=== PATIENT | male | born 1955 ===

== ENCOUNTER → 2018-10-24 | Outpatient (CLI) | payer SELFPAY ==
[~2018-10-24] MED LIST: ACC200C PO; GLIP10TA13; HOLD METFORMIN - RECEIVED CONTRAST 20 ML VIAL IV SCH; IOHEXOL 350 MG/ML 100 ML (OMNIPAQUE 350) VIAL IV ONE; MED FOR DIABETES; METF-399; NS 100 ML (IVPB) BAG IV ONE; PRD20T PO; [UNRECOGNIZED DRUG - CODE] TOP
--- NOTE | 2018-10-24 13:48 | Diagnostic Imaging Report ---
PROCEDURE: CT abdomen and pelvis with contrast. TECHNIQUE: Multiple contiguous axial images were obtained through the abdomen and pelvis after administration of intravenous contrast. Auto Exposure Controls were utilized during the CT exam to meet ALARA standards for radiation dose reduction. INDICATION: Right lower quadrant mass. FINDINGS: No comparison available. Limited views of the lower thorax reveal patchy areas of atelectasis. Liver is normal without focal lesion. Gallbladder is normal. No biliary ductal dilation. Portal vein is patent. Pancreas, spleen, and adrenal glands are normal. Kidneys enhance symmetrically without focal lesion. No hydronephrosis. A cyst is noted in the left kidney. Urinary bladder is normal. There are no dilated loops of large or small bowel. There is diverticulosis without diverticulitis. There is circumferential thickening of the descending colon concerning for a colonic neoplasm (series 2, image 50). No mesocolonic lymph nodes are seen. There is no abdominal or pelvic lymphadenopathy. Abdominal aorta is normal in caliber. No free intraperitoneal fluid or air. There are no suspicious osseous lesions. IMPRESSION: 1. Concentric thickening of the ascending colon concerning for colonic neoplasm. 2. No metastatic disease identified in the abdomen or pelvis. Dictated by: Dictated on workstation # [id number]
== END ==
LOC: RAD 11:41
PROVIDERS: ATTEND Nurse Practitioner Community Health
DX: K63.89 Other specified diseases of intestine (principal); R19.03 Right lower quadrant abdominal swelling, mass and lump
CPT/HCPCS: 74177

== ENCOUNTER 2018-10-27 22:28 | Emergency (ER) | payer SELFPAY ==
[~2018-10-27] VITALS: Ht 165.1 cm; Wt 83.9 kg
[~2018-10-27 22:28] MED LIST changes: -HOLD METFORMIN - RECEIVED CONTRAST 20 ML VIAL IV SCH; -IOHEXOL 350 MG/ML 100 ML (OMNIPAQUE 350) VIAL IV ONE; -NS 100 ML (IVPB) BAG IV ONE
--- OUTSIDE RECORDS SUMMARY | 2018-10-27 22:34 | XMS REPORT ---
Author Author ABHILASH MANN Organization [facility] Address [address] [place] [address] Care Team Providers Care Asphalt Spreader Operator Name Role Phone ABHILASH MANN Unavailable PROBLEMS Type Condition ICD9-CM Code MAI24-BX Code Onset Dates Condition Status SNOMED Code Problem Diabetes E11.9 Active 17696162 ALLERGIES Substance Reaction Event Type Date Status Hydrocodone-acetaminophen 5-325 Mg Tablet Unknown Non Drug Allergy Jul, Active ENCOUNTERS Encounter Location Date Diagnosis [facility] [address] [place] [address] Sep, Epigastric pain R10.13 and H. pylori infection A04.[address] [address] August, Hidradenitis axillaris L73.2 and Diabetes E11.[address] [address] Sep, [address] [address] Sep, Atypical mole D22.[address] [address] Dec, Dyspepsia R10.13 and Tinea corporis B35.[address] [address] Dec, Diabetes E11.9 ; Hyperlipidemia, unspecified hyperlipidemia type E78.5 and Ringworm B35.[address] [address] Feb, Diabetes E11.9 and Callus L84 [place] [address] [id number] [place] [address] 03 Feb, 2015 Sinusitis J32.9 and Rash R21 [facility] [place] [facility] [address] [id number] [place] [address] 26 Sep, 2014 [facility] [place] [facility] [address] [facility] [id number] [place] [address] 18 Sep, 2014 [facility] [place] [facility] [address] [id number] [place] [address] Jul, [facility] [place] [facility] [address] [id number] [place] [address], [place] [address] Jul, [facility] [address] [facility] [id number] [place] [address] Apr, [facility] [place] [facility] [address] [facility] [id number] [place] [address] Apr, [facility] [address] [facility] [id number], [place] [address] 16 Mar, 2014 [facility] [place] [facility] [address] [id number], [place] [address] 16 Mar, 2014 [facility] [place] [facility] [address] [facility] [id number], [place] [address] Mar, [facility] [place] [facility] [address] [facility] [id number], [place] [address] Mar, [facility] [place] [facility] [address] [id number], [place] [address] 14 Feb, 2014 [facility] [place] [facility] [address] [facility] [id number] [place] [address] Feb, [facility] [place] [facility] [address] [facility] [id number], [place] [address] 14 Jan, 2014 [facility] [place] [facility] [address] [facility] [id number], [place] [address] 14 Jan, 2014 [facility] [place] [facility] [address] [id number] [place] [address] Nov, [facility] [place] [facility] [address] [id number] [place] [address] Nov, [facility] [place] [facility] [address] [id number] [place] [address] Nov, [facility] [place] [facility] [address] [id number] [place] [address] Nov, [facility] [place] [facility] [address] [id number] [place] [address] Nov, [facility] [place] [facility] [address] [id number] [place] [address] Nov, [facility] [place] [facility] [address] [id number] [place] [address] Jul, [facility] [place] [facility] [address] [id number] [place] [address] Jul, [facility] [place] [facility] [address] [id number] [place] [address] Jun, [facility] [place] [facility] [address] [id number] [place] [address] Jun, [facility] [place] [facility] [address] [id number] [place] [address] Jun, [facility] [place] [facility] [address] [id number] [place] [address] Jun, [facility] [place] [facility] [address] [id number] [place] [address] Mar, [facility] [place] [facility] [address] [id number] [place] [address] Mar, [facility] [place] [facility] [address] [id number] [place] [address] Jan, [facility] [place] [facility] [address] [id number] [place] [address] Jan, [facility] [address] [facility] [id number], [place] [address] Nov, [facility] [address] [facility] [id number], [place] [address] Oct, [facility] [address] [facility] [id number], [place] [address] August, [facility] [address] [facility] [id number], [place] [address] Jul, [facility] [address] [facility] [id number], [place] [address] May, [facility] [address] [facility] [id number], [place] [address] Apr, [facility] [address] [facility] [id number], [place] [address] Apr, [facility] [address] [facility] [id number], [place] [address] Mar, [facility] [address] [facility] [id number], [place] [address] Mar, [facility] [address] [place] [id number], [place] [address] Feb, [facility] [address] [place] [address] [id number], [place] [address] Feb, [facility] [address] [place] [id number], [place] [address] Jan, [facility] [address] [facility] [id number], [place] [address] Jan, [facility] [address]00565[address], [place] [address] Jan, IMMUNIZATIONS No Known Immunizations SOCIAL HISTORY Never Assessed REASON FOR VISIT EMR-[facility] PLAN OF CARE VITAL SIGNS MEDICATIONS Medication Instructions Dosage Frequency Start Date End Date Duration Status Lisinopril 20 mg 1 tablet 1 time per day Mar, Active Simvastatin 40 mg 1 tablet 1 time per day Mar, Active HydrOXYzine HCl 10 mg 1 Tablet by Oral route 3 times per day for itching Apr, Active Valtrex 1 gram 1 tablet by Oral route every 8 hours for 7 days Nov, Active GlipiZIDE 10 mg 1 tablet by Oral route 2 times per day Jan, Active Fluoxetine 20 mg 1 capsule by Oral route 1 time per day Jun, Active Lyrica 50 mg 1 capsule by Oral route 3 times per day for fibromyalgia (729.1) 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) Jan, Active Lotrisone 1-0.05 % apply 1 Application by Topical route 2 times per day for 2 weeks Mar, Active metformin 1,000 mg 1 tablet by Oral route 2 times per day Jan, Active Viagra 100 mg 0.5-1 tablet by Oral route 1 time per day PRN Mar, Active RESULTS No Results PROCEDURES No Known procedures INSTRUCTIONS MEDICATIONS ADMINISTERED No Known Medications MEDICAL (GENERAL) HISTORY Type Description Date Medical History Eye appt 08/29/14 Mild - Mod DM retinopathy marcell Medical History Type 2 diabetes Medical History hypertension Surgical History orthopedic surgery-right knee surgery, done in [place] by Dr. Alcaraz at [address] 03/2010 Surgical History right knee scope by Dr. Rueda 05/2011 Hospitalization History Hospitalization for surgery only
--- OUTSIDE RECORDS SUMMARY | 2018-10-27 22:35 | XMS REPORT ---
Author Author Migration, Doctor Organization [facility] [place] [facility] Address Unknown Phone Unavailable Care Team Providers Care Sewing Room Supervisor Name Role Phone Migration, Doctor Unavailable Unavailable PROBLEMS Type Condition ICD9-CM Code BRF88-PI Code Onset Dates Condition Status SNOMED Code Problem Diabetes E11.9 Active [id number] ALLERGIES No Information ENCOUNTERS Encounter Location Date Diagnosis [facility] [address] [address] Sep, Epigastric pain R10.13 and H. pylori infection A04.[address] [address] August, Hidradenitis axillaris L73.2 and Diabetes E11.9 [place] [address] [address] Sep, [address] [address] Sep, Atypical mole D22.[address] [address] Dec, Dyspepsia R10.13 and Tinea corporis B35.[address] [address] Dec, Diabetes E11.9 ; Hyperlipidemia, unspecified hyperlipidemia type E78.5 and Ringworm B35.[address] [address] Feb, Diabetes E11.9 and Callus L84 [address] [address] Feb, Sinusitis J32.9 and Rash R21 [address] [place] [address] 26 Sep, 2014 [facility] [place] [facility] [address] [id number] [place] [address] 18 Sep, 2014 [facility] [place] [facility] [address] [id number] [place] [address] 14 Jul, 2014 [facility] [place] [facility] [address] [id number] [place] [address] 13 Jul, 2014 [facility] [place] [facility] [address] [id number] [place] [address] 13 Apr, 2014 [facility] [place] [facility] [address] [id number] [place] [address] Apr, [facility] [place] [facility] [address] [id number] [place] [address] 16 Mar, 2014 [facility] [place] [facility] [address] [id number] [place] [address] 16 Mar, 2014 [facility] [place] [facility] [address] [id number] [place] [address] Mar, [facility] [place] [facility] [address] [id number] [place] [address] Mar, [facility] [place] [facility] [address] [id number] [place] [address] Feb, [facility] [place] [facility] [address] [id number] [place] [address] Feb, [facility] [place] [facility] [address] [id number] [place] [address] Jan, [facility] [place] [facility] [address] [id number] [place] [address] Jan, [facility] [place] [facility] [address] [id number] [place] [address] Nov, [facility] [place] [facility] [address] [id number] [place] [address] Nov, [facility] [place] [facility] [address] [id number] [place] [address] Nov, [facility] [place] [facility] [address] [id number] [place] [address] Nov, [facility] [place] [facility] [address] [id number] [place] [address] Nov, [facility] [place] [facility] [address] [id number] [place] [address] Nov, [facility] [place] [facility] [address] [id number] [place] [address] Jul, [facility] [place] [facility] [address] [id number] [place] [address] Jul, [facility] [place] [facility] [address] [id number] [place] [address] Jun, [facility] [place] [facility] [address] [id number] [place] [address] Jun, [facility] [place] [facility] [address] [id number] [place] [address] Jun, [facility] [place] [facility] [address] [id number] [place] [address] Jun, [facility] [place] [facility] [address] [id number] [place] [address] Mar, [facility] [place] [facility] [address] [id number] [place] [address] Mar, [facility] [place] [facility] [address] [id number] [place] [address] Jan, [facility] [place] [facility] [address] [id number] [place] [address] Jan, [facility] [place] [facility] [address] [id number] [place] [address] Nov, [facility] [place] [facility] [address] [id number] [place] [address] Oct, [facility] [address] [place] [id number] [address] August, [facility] [id number] [address] Jul, [facility] [id number] [address] May, [facility] [id number] [address] Apr, [facility] [address]00565[address] [address] Apr, [facility] [address]65[address] [address] Mar, [facility] [id number] [address] Mar, [facility] [id number] [address] Feb, [facility] [address]00565100[place] [address] Feb, [facility] [address]00565[address] [address] Jan, [facility] [address]00565[address] [address] Jan, [facility] [address] [address] Jan, IMMUNIZATIONS No Known Immunizations SOCIAL HISTORY Never Assessed REASON FOR VISIT [place] PLAN OF CARE VITAL SIGNS MEDICATIONS No Known Medications RESULTS No Results PROCEDURES No Known procedures INSTRUCTIONS MEDICATIONS ADMINISTERED No Known Medications MEDICAL (GENERAL) HISTORY Type Description Date Medical History Eye appt 08/29/14 Mild - Mod DM retinopathy marcell Medical History Type 2 diabetes Medical History hypertension Surgical History orthopedic surgery-right knee surgery, done in [place] by Dr. Alcaraz at [address] 03/2010 Surgical History right knee scope by Dr. Rueda 05/2011 Hospitalization History Hospitalization for surgery only
--- OUTSIDE RECORDS SUMMARY | 2018-10-27 22:35 | XMS REPORT ---
Author Author MILI DENIS [facility] Address [address] [place] [address] Care Team Providers Care Aquaculturist Name Role Phone MILI DENIS Unavailable PROBLEMS Type Condition ICD9-CM Code [id number] Code Onset Dates Condition Status SNOMED Code Problem Diabetes E11.9 Active [id number] ALLERGIES Substance Reaction Event Type Date Status Hydrocodone-acetaminophen 5-325 Mg Tablet Unknown Non Drug Allergy Sep, Active ENCOUNTERS Encounter Location Date Diagnosis [place] [address] [address] Dec, [facility] [address] [address] Sep, Epigastric pain R10.13 and H. pylori infection A04.8 [place] [address] [address] August, Hidradenitis axillaris L73.2 and Diabetes E11.9 [place] [address] [address] Sep, [place] [address] [address] Sep, Atypical mole D22.9 [place] [address] [address] Dec, Dyspepsia R10.13 and Tinea corporis B35.4 [place] [address] [address] Dec, Diabetes E11.9 ; Hyperlipidemia, unspecified hyperlipidemia type E78.5 and Ringworm B35.9 [place] [address] [place] [address] Feb, Diabetes E11.9 and Callus L84 [facility] [address] [place] [id number] [place] [address] Feb, Sinusitis J32.9 and Rash R21 [facility] [address] [id number] [place] [address] Sep, [facility] [id number] [place] [address] Sep, [facility] [id number] [place] [address] Jul, [facility] [id number] [place] [address] Jul, [facility] [id number] [place] [address] Apr, [facility] [address] [id number] [place] [address] Apr, [facility] [id number] [place] [address] Mar, [facility] [id number] [place] [address] Mar, [facility] [id number] [place] [address] Mar, [facility] [id number] [place] [address] 09 Mar, 2014 [facility] [id number] [place] [address] Feb, [facility] [id number] [place] [address] 14 Feb, 2014 [facility] [address], [place] [address] 14 Jan, 2014 [facility] [id number] [place] [address] [place] [address] 14 Jan, 2014 [facility] [place] [facility] [address] [id number] [place] [address] Nov, [facility] [place] [facility] [address] [id number] [place] [address] Nov, [facility] [place] [facility] [address] [id number] [place] [address] Nov, [facility] [place] [facility] [address] [id number] [place] [address] Nov, [facility] [place] [facility] [address] [id number] [place] [address] Nov, [facility] [place] [facility] [address] [id number] [place] [address] Nov, [facility] [place] [facility] [address] [id number] [place] [address] Jul, [facility] [place] [facility] [address] [id number] [place] [address] Jul, [facility] [place] [facility] [address] [id number] [place] [address] 14 Jun, 2013 [facility] [place] [facility] [address] [id number] [place] [address] 14 Jun, 2013 [facility] [place] [facility] [address] [id number] [place] [address] Jun, [facility] [place] [facility] [address] [id number] [place] [address] Jun, [facility] [place] [facility] [address] [id number] [place] [address] Mar, [facility] [place] [facility] [address] [id number] [place] [address] Mar, [facility] [place] [facility] [address] [id number] [place] [address] Jan, [facility] [place] [facility] [address] [id number] [place] [address] Jan, [facility] [address] [facility] [id number] [place] [address] Nov, [facility] [address] [facility] [id number] [place] [address] Oct, [facility] [address] [facility] [id number] [place] [address] August, [facility] [address] [id number] [place] [address] Jul, [facility] [address] [facility] [id number] [place] [address] May, [facility] [address] [facility] [id number] [place] [address] Apr, [facility] [address] [facility] [id number] [place] [address] Apr, [facility] [address] [facility] [id number] [place] [address] Mar, [facility] [address] [facility] [id number], [place] [address] Mar, [facility] [address] [facility] [id number], [place] [address] Feb, [facility] [address] [facility] [id number], [place] [address] Feb, [facility] [address] [facility] [id number], [place] [address] Jan, [facility] [address] [facility] [id number], [place] [address] Jan, [facility] [address] [facility] [id number], [place] [address] Jan, IMMUNIZATIONS No Known Immunizations SOCIAL HISTORY Never Assessed REASON FOR VISIT Pain (acute) under left breast started 1-2 months ago- came back 1-2 weeks ago a nd is constant JStrasserRN PLAN OF CARE Activity Details Follow Up prn Reason: VITAL SIGNS Height 65 in 2017-09-18 Weight 193.0 lbs 2017-09-18 Temperature 97.6 degrees Fahrenheit 2017-09-18 Heart Rate 68 bpm 2017-09-18 Respiratory Rate 18 2017-09-18 BMI 32.11 kg/m2 2017-09-18 Blood pressure systolic 140 mmHg 2017-09-18 Blood pressure diastolic 74 mmHg 2017-09-18 MEDICATIONS Medication Instructions Dosage Frequency Start Date End Date Duration Status Triamcinolone Acetonide 0.5 % Externally Twice a day 1 application to affected area 12h 19 Feb, 2015 Not-Taking Aspir-81 81 MG Orally Once a day 1 tablet 24h Not-Taking Lisinopril 20 mg Orally Once a day 1 tablet 24h Not-Taking Zantac 150 MG Orally twice a day 1 12h 08 Dec, 2015 Not-Taking GlipiZIDE 10 mg 2 tablet in AM and 1 in PM 30 days Active Simvastatin 40 mg Orally Once a day 1 tablet in the evening 24h Not-Taking Omeprazole 20 MG Orally twice daily 1 capsule Sep, 14 days Active Clarithromycin 500 MG Orally every 12 hrs 1 tablet 12h Sep, Sep, 14 days Active Metformin HCl 1000 MG Orally Twice a day 1 tablet with meals 12h 30 days Active Amoxicillin 500 MG Orally every 12 hrs 2 capsule 12h Sep, Sep, 14 days Active Neurontin 300 MG Orally Once a day 1 capsule 24h Not-Taking RESULTS Name Result Date Reference Range H PYLORI (IN HOUSE) 2017-09-18 H. PYLORI positive Control + Lot # [id number] Exp date 2017-12-28 PROCEDURES Procedure Date Ordered Result Body Site IMMUNOASSAY,INFECTIOUS AGENT September 18, 2017 INSTRUCTIONS MEDICATIONS ADMINISTERED No Known Medications MEDICAL (GENERAL) HISTORY Type Description Date Medical History Eye appt 08/29/14 Mild - Mod DM retinopathy marcell Medical History Type 2 diabetes Medical History hypertension Surgical History orthopedic surgery-right knee surgery, done in [place] by Dr. Alcaraz at [address] 03/2010 Surgical History right knee scope by Dr. Rueda 05/2011 Hospitalization History Hospitalization for surgery only
--- OUTSIDE RECORDS SUMMARY | 2018-10-27 22:35 | XMS REPORT ---
Author Author Migration, Doctor Organization [facility] Address Unknown Phone Unavailable Care Team Providers Care Screen Printing Cloth Spreader Name Role Phone Migration, Doctor Unavailable Unavailable PROBLEMS Type Condition ICD9-CM Code [id number] Code Onset Dates Condition Status SNOMED Code Problem Diabetes E11.9 Active 44938774 ALLERGIES No Information ENCOUNTERS Encounter Location Date Diagnosis [facility] [address] [address] Sep, Epigastric pain R10.13 and H. pylori infection A04.[address] [address] August, Hidradenitis axillaris L73.2 and Diabetes E11.9 [place] [address] [address] Sep, [address] [address] Sep, Atypical mole D22.[address] [address] Dec, Dyspepsia R10.13 and Tinea corporis B35.[address] [address] Dec, Diabetes E11.9 ; Hyperlipidemia, unspecified hyperlipidemia type E78.5 and Ringworm B35.[address] [address] Feb, Diabetes E11.9 and Callus L84 [address] [address] Feb, Sinusitis J32.9 and Rash R21 [address] [place] [address] 26 Sep, 2014 [facility] [place] [facility] [address] [id number] [place] [address] 18 Sep, 2014 [facility] [place] [facility] [address] [id number] [place] [address] 14 Jul, 2014 [facility] [place] [facility] [address] [id number] [place] [address] 13 Jul, 2014 [facility] [place] [facility] [address] [id number] [place] [address] 13 Apr, 2014 [facility] [place] [facility] [address] [id number] [place] [address] Apr, [facility] [place] [facility] [address] [id number] [place] [address] 16 Mar, 2014 [facility] [place] [facility] [address] [id number] [place] [address] 16 Mar, 2014 [facility] [place] [facility] [address] [id number] [place] [address] Mar, [facility] [place] [facility] [address] [id number] [place] [address] Mar, [facility] [place] [facility] [address] [id number] [place] [address] Feb, [facility] [place] [facility] [address] [id number] [place] [address] Feb, [facility] [place] [facility] [address] [id number] [place] [address] Jan, [facility] [place] [facility] [address] [id number] [place] [address] Jan, [facility] [place] [facility] [address] [id number] [place] [address] Nov, [facility] [place] [facility] [address] [id number] [place] [address] Nov, [facility] [place] [facility] [address] [id number] [place] [address] Nov, [facility] [place] [facility] [address] [id number] [place] [address] Nov, [facility] [place] [facility] [address] [id number] [place] [address] Nov, [facility] [place] [facility] [address] [id number] [place] [address] Nov, [facility] [place] [facility] [address] [id number] [place] [address] Jul, [facility] [place] [facility] [address] [id number] [place] [address] Jul, [facility] [place] [facility] [address] [id number] [place] [address] Jun, [facility] [place] [facility] [address] [id number] [place] [address] Jun, [facility] [place] [facility] [address] [id number] [place] [address] Jun, [facility] [place] [facility] [address] [id number] [place] [address] Jun, [facility] [place] [facility] [address] [id number] [place] [address] Mar, [facility] [place] [facility] [address] [id number] [place] [address] Mar, [facility] [place] [facility] [address] [id number] [place] [address] Jan, [facility] [place] [facility] [address] [id number] [place] [address] Jan, [facility] [place] [facility] [address] [id number] [place] [address] Nov, [facility] [place] [facility] [address] [id number] [place] [address] Oct, [facility] [address] [id number] [address] August, [facility] [address] [address] Jul, [facility] [address] [address] May, [facility] [address] [address] Apr, [facility] [address] [address] Apr, [facility] [address] [address] Mar, [facility] [address] [address] Mar, [facility] [address] [address] Feb, [facility] [address] [address] Feb, [facility] [address] [address] Jan, [facility] [address] [address] Jan, [facility] [address] [address] Jan, IMMUNIZATIONS No Known Immunizations SOCIAL HISTORY Never Assessed REASON FOR VISIT EMR-[facility] PLAN OF CARE VITAL SIGNS MEDICATIONS No Known Medications RESULTS No Results PROCEDURES No Known procedures INSTRUCTIONS MEDICATIONS ADMINISTERED No Known Medications MEDICAL (GENERAL) HISTORY Type Description Date Medical History Eye appt 08/29/14 Mild - Mod DM retinopathy marcell Medical History Type 2 diabetes Medical History hypertension Surgical History orthopedic surgery-right knee surgery, done in [place] by Dr. Alcaraz at [address] 03/2010 Surgical History right knee scope by Dr. Rueda 05/2011 Hospitalization History Hospitalization for surgery only
--- OUTSIDE RECORDS SUMMARY | 2018-10-27 22:35 | XMS REPORT ---
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 Problem Nontraumatic rupture of tendons of biceps (long head) 727.62 Active Assessment Callus L84 Active Problem Lumbago 724.2 Active Problem Herpes zoster without mention of complication 053.9 Active Problem Diabetes E11.9 Active Problem Unspecified pruritic disorder 698.9 Active Problem 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 Problem Pain in joint, shoulder region 719.41 Active Problem Corns and callosities 700 Active Medications Medication Code System Code Instructions Start Date End Date Status Dosage Metformin HCl [facility] [address]-32 1000 MG Orally Twice a day 1 tablet with meals GlipiZIDE [facility] [address]-40 10 MG Orally 2 tablet in AM and 1 in PM Triamcinolone Acetonide [facility] [address]-60 0.5 % Externally Twice a day Mar 07, 2015 1 application to affected area Aspir-81 [facility] [address]-98 81 MG Orally Once a day 1 tablet Simvastatin [facility] [address]-90 40 MG Orally Once a day 1 tablet in the evening Lisinopril [facility] [address]-19 20 MG Orally Once a day 1 tablet Procedures Procedure Coding System Code Date COMPREHEN METABOLIC PANEL CPT-4 88096 Mar 07, 2015 LIPID PANEL CPT-4 04929 Mar 07, 2015 GLYCATED HEMOGLOBIN TEST CPT-4 63224 Mar 07, 2015 VENIPUNCT, ROUTINE* CPT-4 65763 Mar 07, 2015 Office Visit, Est Pt., Level 3 CPT-4 31972 Mar 07, 2015 Vital Signs Date/Time: Mar 07, 2015 Temperature 98.0 F Weight 199 lbs Height 65 in BMI 33.11 Index Blood Pressure Diastolic 62 mmHg Blood Pressure Systolic 118 mmHg Cardiac Monitoring Heart Rate 60 bpm Results Name Result Date Reference Range Unit Abnormality Flag A1C (IN HOUSE) Summary Purpose eClinicalWorks Submission
--- OUTSIDE RECORDS SUMMARY | 2018-10-27 22:35 | XMS REPORT ---
Author Author Migration, Doctor Organization [facility] Address Unknown Phone Unavailable Care Team Providers Care Jointer Machine Operator Name Role Phone Migration, Doctor Unavailable Unavailable PROBLEMS Type Condition ICD9-CM Code [id number] Code Onset Dates Condition Status SNOMED Code Problem Diabetes E11.9 Active 29187454 ALLERGIES No Information ENCOUNTERS Encounter Location Date Diagnosis [facility] [address] [address] Sep, Epigastric pain R10.13 and H. pylori infection A04.[address] [address] August, Hidradenitis axillaris L73.2 and Diabetes E11.9 [place] [address] [address] Sep, [address] [address] Sep, Atypical mole D22.[address] [address] Dec, Dyspepsia R10.13 and Tinea corporis B35.[address] [address] Dec, Diabetes E11.9 ; Hyperlipidemia, unspecified hyperlipidemia type E78.5 and Ringworm B35.[address] [address] Feb, Diabetes E11.9 and Callus L84 [address] [address] Feb, Sinusitis J32.9 and Rash R21 [address] [place] [address] 26 Sep, 2014 [facility] [place] [facility] [address] [id number] [place] [address] 18 Sep, 2014 [facility] [place] [facility] [address] [id number] [place] [address] 14 Jul, 2014 [facility] [place] [facility] [address] [id number] [place] [address] 13 Jul, 2014 [facility] [place] [facility] [address] [id number] [place] [address] 13 Apr, 2014 [facility] [place] [facility] [address] [id number] [place] [address] Apr, [facility] [place] [facility] [address] [id number] [place] [address] 16 Mar, 2014 [facility] [place] [facility] [address] [id number] [place] [address] 16 Mar, 2014 [facility] [place] [facility] [address] [id number] [place] [address] Mar, [facility] [place] [facility] [address] [id number] [place] [address] Mar, [facility] [place] [facility] [address] [id number] [place] [address] Feb, [facility] [place] [facility] [address] [id number] [place] [address] Feb, [facility] [place] [facility] [address] [id number] [place] [address] Jan, [facility] [place] [facility] [address] [id number] [place] [address] Jan, [facility] [place] [facility] [address] [id number] [place] [address] Nov, [facility] [place] [facility] [address] [id number] [place] [address] Nov, [facility] [place] [facility] [address] [id number] [place] [address] Nov, [facility] [place] [facility] [address] [id number] [place] [address] Nov, [facility] [place] [facility] [address] [id number] [place] [address] Nov, [facility] [place] [facility] [address] [id number] [place] [address] Nov, [facility] [place] [facility] [address] [id number] [place] [address] Jul, [facility] [place] [facility] [address] [id number] [place] [address] Jul, [facility] [place] [facility] [address] [id number] [place] [address] Jun, [facility] [place] [facility] [address] [id number] [place] [address] Jun, [facility] [place] [facility] [address] [id number] [place] [address] Jun, [facility] [place] [facility] [address] [id number] [place] [address] Jun, [facility] [place] [facility] [address] [id number] [place] [address] Mar, [facility] [place] [facility] [address] [id number] [place] [address] Mar, [facility] [place] [facility] [address] [id number] [place] [address] Jan, [facility] [place] [facility] [address] [id number] [place] [address] Jan, [facility] [place] [facility] [address] [id number] [place] [address] Nov, [facility] [place] [facility] [address] [id number] [address] Oct, [facility] [address] [place] [id number] [address] August, [facility] [address] [address] Jul, [facility] [address] [address] May, [facility] [address] [address] Apr, [facility] [address] [address] Apr, [facility] [address] [address] Mar, [facility] [address] [address] Mar, [facility] [address] [address] Feb, [facility] [address] [address] Feb, [facility] [address] [address] Jan, [facility] [address], [place] [address] Jan, [facility] [address], [place] [address] Jan, IMMUNIZATIONS No Known Immunizations SOCIAL HISTORY Never Assessed REASON FOR VISIT EMR-[facility] PLAN OF CARE VITAL SIGNS MEDICATIONS No Known Medications RESULTS No Results PROCEDURES No Known procedures INSTRUCTIONS MEDICATIONS ADMINISTERED No Known Medications MEDICAL (GENERAL) HISTORY Type Description Date Medical History Eye appt 08/29/14 Mild - Mod DM retinopathy marcell Medical History Type 2 diabetes Medical History hypertension Surgical History orthopedic surgery-right knee surgery, done in [place] by Dr. Alcaraz at [address] 03/2010 Surgical History right knee scope by Dr. Rueda 05/2011 Hospitalization History Hospitalization for surgery only
--- OUTSIDE RECORDS SUMMARY | 2018-10-27 22:35 | XMS REPORT ---
Author Author ABHILASH MANN Organization [facility] Address [address] [place] [address] Care Team Providers Care Ct Scan Special Procedures Technologist Name Role Phone ABHILASH MANN Unavailable PROBLEMS Type Condition ICD9-CM Code OTM17-VH Code Onset Dates Condition Status SNOMED Code Problem Diabetes E11.9 Active 33638811 ALLERGIES Substance Reaction Event Type Date Status Hydrocodone-acetaminophen 5-325 Mg Tablet Unknown Non Drug Allergy August, Active ENCOUNTERS Encounter Location Date Diagnosis [address] [address] Dec, [facility] [address] [address] Sep, Epigastric pain R10.13 and H. pylori infection A04.[address] [address] August, Hidradenitis axillaris L73.2 and Diabetes E11.[address] [address] Sep, [address] [address] Sep, Atypical mole D22.[address] [address] Dec, Dyspepsia R10.13 and Tinea corporis B35.[address] [address] Dec, Diabetes E11.9 ; Hyperlipidemia, unspecified hyperlipidemia type E78.5 and Ringworm B35.9 [place] [id number] [place] [address] Feb, Diabetes E11.9 and Callus L84 [facility] [address] [place] [id number] [place] [address] Feb, Sinusitis J32.9 and Rash R21 [facility] [address] [place] [id number] [place] [address] Sep, [facility] [address] [id number] [place] [address] Sep, [facility] [id number] [place] [address] Jul, [facility] [id number] [place] [address] Jul, [facility] [id number] [place] [address] Apr, [facility] [id number] [place] [address] Apr, [facility] [id number] [place] [address] 16 Mar, 2014 [facility] [id number] [place] [address] 16 Mar, 2014 [facility] [address] [place] [address] Mar, [facility] [address] [place] [address] 09 Mar, 2014 [facility] [id number] [place] [address] 14 Feb, 2014 [facility] [id number] [place] [address] 14 Feb, 2014 [facility] [address] [address] 14 Jan, 2014 [facility] [address] [id number] [place] [address] 14 Jan, 2014 [facility] [place] [facility] [address] [id number] [place] [address] Nov, [facility] [place] [facility] [address] [id number] [place] [address] Nov, [facility] [place] [facility] [address] [id number] [place] [address] Nov, [facility] [place] [facility] [address] [id number] [place] [address] Nov, [facility] [place] [facility] [address] [id number] [place] [address] Nov, [facility] [place] [facility] [address] [id number] [place] [address] Nov, [facility] [place] [facility] [address] [id number] [place] [address] 14 Jul, 2013 [facility] [place] [facility] [address] [id number] [place] [address] 14 Jul, 2013 [facility] [place] [facility] [address] [id number] [place] [address] 14 Jun, 2013 [facility] [place] [facility] [address] [id number] [place] [address] 14 Jun, 2013 [facility] [place] [facility] [address] [id number] [place] [address] Jun, [facility] [place] [facility] [address] [id number] [place] [address] Jun, [facility] [place] [facility] [address] [id number] [place] [address] Mar, [facility] [place] [facility] [address] [id number] [place] [address] Mar, [facility] [place] [facility] [address] [id number] [place] [address] Jan, [facility] [place] [facility] [address] [facility] [id number] [place] [address] Jan, [facility] [address] [facility] [id number] [place] [address] Nov, [facility] [address] [facility] [id number] [place] [address] Oct, [facility] [address] [facility] [id number] [place] [address] August, [facility] [address] [id number] [place] [address] Jul, [facility] [address] [facility] [id number] [place] [address] May, [facility] [address] [facility] [id number] [place] [address] Apr, [facility] [address] [facility] [id number] [place] [address] Apr, [facility] [address] [facility] [id number] [place] [address] Mar, [facility] [address] [facility] [id number] [place] [address] Mar, [facility] [id number] [address] Feb, [facility] [address] [facility] [id number] [place] [address] Feb, [facility] [address] [facility] [id number] [place] [address] Jan, [facility] [address] [facility] [id number] [place] [address] Jan, [facility] [address] [facility] [id number] [place] [address] Jan, IMMUNIZATIONS No Known Immunizations SOCIAL HISTORY Never Assessed REASON FOR VISIT rash in PT under arms that started as a bump 2 weeks ago. -Estuardo PETERSON PLAN OF CARE Activity Details Follow Up 3 Months Reason:DM VITAL SIGNS Height 65 in 2017-08-30 Weight 196.7 lbs 2017-08-30 Temperature 97.8 degrees Fahrenheit 2017-08-30 Heart Rate 78 bpm 2017-08-30 Respiratory Rate 20 2017-08-30 BMI 32.73 kg/m2 2017-08-30 Blood pressure systolic 122 mmHg 2017-08-30 Blood pressure diastolic 64 mmHg 2017-08-30 MEDICATIONS Medication Instructions Dosage Frequency Start Date End Date Duration Status Triamcinolone Acetonide 0.5 % Externally Twice a day 1 application to affected area 12h 19 Feb, 2015 Not-Taking Aspir-81 81 MG Orally Once a day 1 tablet 24h Not-Taking GlipiZIDE 10 mg 2 tablet in AM and 1 in PM 30 days Active Simvastatin 40 mg Orally Once a day 1 tablet in the evening 24h Not-Taking Metformin HCl 1000 MG Orally Twice a day 1 tablet with meals 12h 30 days Active Doxycycline Hyclate 100 mg Orally twice a day 1 capsule 12h August, August, 10 day(s) Active Neurontin 300 MG Orally Once a day 1 capsule 24h Not-Taking Lisinopril 20 mg Orally Once a day 1 tablet 24h Not-Taking Zantac 150 MG Orally twice a day 1 12h 08 Dec, 2015 Not-Taking RESULTS Name Result Date Reference Range A1C (IN HOUSE) 2017-08-30 A1C IN HOUSE 12.7 4.3 - 5.6 % Previous A1c 10.6 Lot [id number] Exp date 05/2019 PROCEDURES Procedure Date Ordered Result Body Site GLYCATED HEMOGLOBIN TEST August 30, 2017 INSTRUCTIONS MEDICATIONS ADMINISTERED No Known Medications MEDICAL (GENERAL) HISTORY Type Description Date Medical History Eye appt 08/29/14 Mild - Mod DM retinopathy marcell Medical History Type 2 diabetes Medical History hypertension Surgical History orthopedic surgery-right knee surgery, done in [place] by Dr. Alcaraz at [address] 03/2010 Surgical History right knee scope by Dr. Rueda 05/2011 Hospitalization History Hospitalization for surgery only
--- OUTSIDE RECORDS SUMMARY | 2018-10-27 22:36 | XMS REPORT | Continuity of Care Document ---
Author Organization Unknown Address Unknown Allergies Active Description Code Type Severity Reaction Onset Reported/Identified Relationship to Patient Clinical Status Yes hydrocodone-acetaminophen 5-325 mg tablet Drug Allergy N/A N/A 05/01/2014 Medications There is no data. Problems Date Dx Coded Attending Type Code Diagnosis Diagnosed By 01/17/2009 250.02 DIABETES MELLITUS POORLY CONTROLLED 01/17/2009 786.2 Cough 01/17/2009 MACKENZIE SOLIS ABHILASH S 250.02 DIABETES MELLITUS POORLY CONTROLLED 01/17/2009 MACKENZIE SOLIS ABHILASH S 786.2 Cough 01/17/2009 MARTHA MANN APRNNDA S 250.02 DIABETES MELLITUS POORLY CONTROLLED 01/17/2009 MACKENZIE SOLIS ABHILASH S 786.2 Cough 01/17/2009 TONY MARISCAL APRNRICIA R 250.02 DIABETES MELLITUS POORLY CONTROLLED 01/17/2009 TONY MARISCAL APRNRICIA R 786.2 Cough 01/17/2009 NOEL DO, JOÃO K 250.02 DIABETES MELLITUS POORLY CONTROLLED 01/17/2009 NOEL DO, JOÃO K 786.2 Cough 01/17/2009 NOEL DO, JOÃO K 250.02 DIABETES MELLITUS POORLY CONTROLLED 01/17/2009 NOEL DO, JOÃO K 786.2 Cough 01/17/2009 MACKENZIE SOLIS ABHILASH S 250.02 DIABETES MELLITUS POORLY CONTROLLED 01/17/2009 MACKENZIE MUNGUIAN ABHILASH S 786.2 Cough 01/17/2009 NOEL DO, JOÃO K 250.02 DIABETES MELLITUS POORLY CONTROLLED 01/17/2009 NOEL DO, JOÃO K 786.2 Cough 01/17/2009 250.02 DIABETES MELLITUS POORLY CONTROLLED 01/17/2009 786.2 Cough 01/17/2009 MACKENZIE SOLIS ABHILASH S 250.02 DIABETES MELLITUS POORLY CONTROLLED 01/17/2009 MACKENZIE SOLIS ABHILASH S 786.2 Cough 11/24/2010 719.46 PAIN IN JOINT INVOLVING LOWER LEG 11/24/2010 ABHILASH MANN APRN S 719.46 PAIN IN JOINT INVOLVING LOWER LEG 11/24/2010 WAQAS MANN APRNA S 719.46 PAIN IN JOINT INVOLVING LOWER LEG 11/24/2010 LILLIE MARISCAL APRN R 719.46 PAIN IN JOINT INVOLVING LOWER LEG 11/24/2010 JOÃO NOEL DO K 719.46 PAIN IN JOINT INVOLVING LOWER LEG 11/24/2010 JOÃO NOEL DO K 719.46 PAIN IN JOINT INVOLVING LOWER LEG 11/24/2010 WAQAS MANN APRNA S 719.46 PAIN IN JOINT INVOLVING LOWER LEG 11/24/2010 JOÃO NOEL DO K 719.46 PAIN IN JOINT INVOLVING LOWER LEG 11/24/2010 719.46 PAIN IN JOINT INVOLVING LOWER LEG 11/24/2010 ABHILASH MANN APRN S 719.46 PAIN IN JOINT INVOLVING LOWER LEG 12/25/2010 836.1 TEAR OF LATERAL CARTILAGE OR MENISCUS OF KNEE CURRENT 12/25/2010 ABHILASH MANN APRN S 836.1 TEAR OF LATERAL CARTILAGE OR MENISCUS OF KNEE CURRENT 12/25/2010 WAAQS MANN APRNA S 836.1 TEAR OF LATERAL CARTILAGE OR MENISCUS OF KNEE CURRENT 12/25/2010 LILLIE MARISCAL APRN R 836.1 TEAR OF LATERAL CARTILAGE OR MENISCUS OF KNEE CURRENT 12/25/2010 JOÃO NOEL DO K 836.1 TEAR OF LATERAL CARTILAGE OR MENISCUS OF KNEE CURRENT 12/25/2010 JOÃO NOEL DO K 836.1 TEAR OF LATERAL CARTILAGE OR MENISCUS OF KNEE CURRENT 12/25/2010 WAQAS MANN APRNA S 836.1 TEAR OF LATERAL CARTILAGE OR MENISCUS OF KNEE CURRENT 12/25/2010 MOOSE NOEL DOA K 836.1 TEAR OF LATERAL CARTILAGE OR MENISCUS OF KNEE CURRENT 12/25/2010 836.1 TEAR OF LATERAL CARTILAGE OR MENISCUS OF KNEE CURRENT 12/25/2010 WAQAS MANN APRNA S 836.1 TEAR OF LATERAL CARTILAGE OR MENISCUS OF KNEE CURRENT 02/10/2011 250.62 DIABETES W/ NEUROPATHY, TYPE 2 - UNCONTROLLED 02/10/2011 272.4 HYPERLIPIDEMIA 02/10/2011 401.1 ESSENTIAL HYPERTENSION BENIGN 02/10/2011 WAQAS MANN APRNA S 250.62 DIABETES W/ NEUROPATHY, TYPE 2 - UNCONTROLLED 02/10/2011 MACKENZIE GREENHOUSE SPECIALIST, ABHILASH S 272.4 HYPERLIPIDEMIA 02/10/2011 MACKENZIE GREENHOUSE SPECIALIST, ABHILASH S 401.1 ESSENTIAL HYPERTENSION BENIGN 02/10/2011 MACKENZIE GREENHOUSE SPECIALIST, ABHILASH S 250.62 DIABETES W/ NEUROPATHY, TYPE 2 - UNCONTROLLED 02/10/2011 MACKENZIE GREENHOUSE SPECIALIST, ABHILASH S 272.4 HYPERLIPIDEMIA 02/10/2011 MACKENZIE GREENHOUSE SPECIALIST, ABHILASH S 401.1 ESSENTIAL HYPERTENSION BENIGN 02/10/2011 LOIDA SOLIS, LILLIE R 250.62 DIABETES W/ NEUROPATHY, TYPE 2 - UNCONTROLLED 02/10/2011 MARISCAL GREENHOUSE SPECIALIST, LILLIE R 272.4 HYPERLIPIDEMIA 02/10/2011 LOIDA GREENHOUSE SPECIALIST, LILLIE R 401.1 ESSENTIAL HYPERTENSION BENIGN 02/10/2011 NOEL DO, JOÃO K 250.62 DIABETES W/ NEUROPATHY, TYPE 2 - UNCONTROLLED 02/10/2011 NOEL DO, JOÃO K 272.4 HYPERLIPIDEMIA 02/10/2011 NOEL DO, JOÃO K 401.1 ESSENTIAL HYPERTENSION BENIGN 02/10/2011 NOEL DO, JOÃO K 250.62 DIABETES W/ NEUROPATHY, TYPE 2 - UNCONTROLLED 02/10/2011 NOEL DO, JOÃO K 272.4 HYPERLIPIDEMIA 02/10/2011 NOEL DO, JOÃO K 401.1 ESSENTIAL HYPERTENSION BENIGN 02/10/2011 MARTHA MANN APRNNDA S 250.62 DIABETES W/ NEUROPATHY, TYPE 2 - UNCONTROLLED 02/10/2011 MACKENZIE GREENHOUSE SPECIALIST, ABHILASH S 272.4 HYPERLIPIDEMIA 02/10/2011 MARTHA MANN APRNNDA S 401.1 ESSENTIAL HYPERTENSION BENIGN 02/10/2011 NOEL DO, JOÃO K 250.62 DIABETES W/ NEUROPATHY, TYPE 2 - UNCONTROLLED 02/10/2011 NOEL DO, JOÃO K 272.4 HYPERLIPIDEMIA 02/10/2011 NOEL DO, JOÃO K 401.1 ESSENTIAL HYPERTENSION BENIGN 02/10/2011 250.62 DIABETES W/ NEUROPATHY, TYPE 2 - UNCONTROLLED 02/10/2011 272.4 HYPERLIPIDEMIA 02/10/2011 401.1 ESSENTIAL HYPERTENSION BENIGN 02/10/2011 MACKENZIE SOLIS, ABHILASH S 250.62 DIABETES W/ NEUROPATHY, TYPE 2 - UNCONTROLLED 02/10/2011 MACKENZIE SOLIS ABHILASH S 272.4 HYPERLIPIDEMIA 02/10/2011 ABHILASH MANN APRN S 401.1 ESSENTIAL HYPERTENSION BENIGN 03/09/2011 704.8 OTHER SPECIFIED DISEASES OF HAIR AND HAIR FOLLICLES 03/09/2011 ABHILASH MANN APRN S 704.8 OTHER SPECIFIED DISEASES OF HAIR AND HAIR FOLLICLES 03/09/2011 AHBILASH MANN APRN S 704.8 OTHER SPECIFIED DISEASES OF HAIR AND HAIR FOLLICLES 03/09/2011 LILLIE MARISCAL APRN R 704.8 OTHER SPECIFIED DISEASES OF HAIR AND HAIR FOLLICLES 03/09/2011 NOEL DO JOÃO K 704.8 OTHER SPECIFIED DISEASES OF HAIR AND HAIR FOLLICLES 03/09/2011 NOEL DO JOÃO K 704.8 OTHER SPECIFIED DISEASES OF HAIR AND HAIR FOLLICLES 03/09/2011 ABHILASH MANN APRN S 704.8 OTHER SPECIFIED DISEASES OF HAIR AND HAIR FOLLICLES 03/09/2011 NOEL DO JOÃO K 704.8 OTHER SPECIFIED DISEASES OF HAIR AND HAIR FOLLICLES 03/09/2011 704.8 OTHER SPECIFIED DISEASES OF HAIR AND HAIR FOLLICLES 03/09/2011 ABHILASH MANN APRN S 704.8 OTHER SPECIFIED DISEASES OF HAIR AND HAIR FOLLICLES 07/27/2011 719.41 PAIN IN JOINT INVOLVING SHOULDER REGION 07/27/2011 ABHILASH MANN APRN S 719.41 PAIN IN JOINT INVOLVING SHOULDER REGION 07/27/2011 ABHILASH MANN APRN S 719.41 PAIN IN JOINT INVOLVING SHOULDER REGION 07/27/2011 LILLIE MARISCAL APRN R 719.41 PAIN IN JOINT INVOLVING SHOULDER REGION 07/27/2011 SADIE DOMOOSEA K 719.41 PAIN IN JOINT INVOLVING SHOULDER REGION 07/27/2011 SADIE DO JOÃO K 719.41 PAIN IN JOINT INVOLVING SHOULDER REGION 07/27/2011 WAQAS MANN APRNA S 719.41 PAIN IN JOINT INVOLVING SHOULDER REGION 07/27/2011 NOEL DO JOÃO K 719.41 PAIN IN JOINT INVOLVING SHOULDER REGION 07/27/2011 719.41 PAIN IN JOINT INVOLVING SHOULDER REGION 07/27/2011 ABHILASH MANN APRN S 719.41 PAIN IN JOINT INVOLVING SHOULDER REGION 09/10/2011 727.62 NONTRAUMATIC RUPTURE OF TENDONS OF BICEPS (LONG HEAD) 09/10/2011 MACKENZIE GREENHOUSE SPECIALIST, ABHILASH S 727.62 NONTRAUMATIC RUPTURE OF TENDONS OF BICEPS (LONG HEAD) 09/10/2011 WAQAS MANN APRNA S 727.62 NONTRAUMATIC RUPTURE OF TENDONS OF BICEPS (LONG HEAD) 09/10/2011 LILLIE MARISCAL APRN R 727.62 NONTRAUMATIC RUPTURE OF TENDONS OF BICEPS (LONG HEAD) 09/10/2011 NOEL DO JOÃO K 727.62 NONTRAUMATIC RUPTURE OF TENDONS OF BICEPS (LONG HEAD) 09/10/2011 NOEL DO, JOÃO K 727.62 NONTRAUMATIC RUPTURE OF TENDONS OF BICEPS (LONG HEAD) 09/10/2011 MACKENZIE SOLIS ABHILASH S 727.62 NONTRAUMATIC RUPTURE OF TENDONS OF BICEPS (LONG HEAD) 09/10/2011 NOEL DOMOOSEA K 727.62 NONTRAUMATIC RUPTURE OF TENDONS OF BICEPS (LONG HEAD) 09/10/2011 727.62 NONTRAUMATIC RUPTURE OF TENDONS OF BICEPS (LONG HEAD) 09/10/2011 WAQAS MANN APRNA S 727.62 NONTRAUMATIC RUPTURE OF TENDONS OF BICEPS (LONG HEAD) 01/18/2012 724.2 LUMBAGO 01/18/2012 MACKENZIE SOLIS ABHILASH S 724.2 LUMBAGO 01/18/2012 MARTHA MANN APRNNDA S 724.2 LUMBAGO 01/18/2012 LILLIE MARISCAL APRN R 724.2 LUMBAGO 01/18/2012 NOEL DO JOÃO K 724.2 LUMBAGO 01/18/2012 SADIE DO JOÃO K 724.2 LUMBAGO 01/18/2012 MACKENZIE SOLIS ABHILASH S 724.2 LUMBAGO 01/18/2012 NOEL DO, JOÃO K 724.2 LUMBAGO 01/18/2012 724.2 LUMBAGO 01/18/2012 MARTHA MANN APRNNDA S 724.2 LUMBAGO 11/24/2013 LILLIE MARISCAL APRN R 053.9 HERPES ZOSTER (SHINGLES) 11/24/2013 NOEL DO JOÃO K 053.9 HERPES ZOSTER (SHINGLES) 11/24/2013 SADIE SMITH JOÃO K 053.9 HERPES ZOSTER (SHINGLES) 11/24/2013 ABHILASH MANN APRN S 053.9 HERPES ZOSTER (SHINGLES) 11/24/2013 JOÃO NOEL DO K 053.9 HERPES ZOSTER (SHINGLES) 11/24/2013 053.9 HERPES ZOSTER (SHINGLES) 11/24/2013 ABHILASH MANN APRN S 053.9 HERPES ZOSTER (SHINGLES) 01/30/2014 JOÃO NOEL DO K 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 01/30/2014 ABHILASH MANN APRN S 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 01/30/2014 JOÃO NOEL DO K 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 01/30/2014 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 01/30/2014 ABHILASH MANN APRN S 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 03/27/2014 ABHILASH MANN APRN S 700 CORNS AND CALLOSITIES 03/27/2014 JOÃO NOEL DO 700 CORNS AND CALLOSITIES 03/27/2014 700 CORNS AND CALLOSITIES 03/27/2014 ABHILASH MANN APRN S 700 CORNS AND CALLOSITIES 04/03/2014 ABHILASH MANN APRN S 302.72 ERECTILE DISORDER 04/03/2014 ABHILASH MANN APRN S V04.81 FLU SHOT 04/03/2014 JOÃO NOEL DO K 302.72 ERECTILE DISORDER 04/03/2014 JOÃO NOEL DO V04.81 FLU SHOT 04/03/2014 302.72 ERECTILE DISORDER 04/03/2014 V04.81 FLU SHOT 04/03/2014 ABHILASH MANN APRN S 302.72 ERECTILE DISORDER 04/03/2014 ABHILASH MANN APRN S V04.81 FLU SHOT 05/01/2014 JOÃO NOEL DO 698.9 UNSPECIFIED PRURITIC DISORDER 05/01/2014 698.9 UNSPECIFIED PRURITIC DISORDER 05/01/2014 ABHILASH MANN APRN S 698.9 UNSPECIFIED PRURITIC DISORDER 07/18/2014 307.42 INSOMNIA, PSYCHOPHYSIOLOGICAL 07/18/2014 356.9 NEUROPATHY 07/18/2014 ABHILASH MANN APRN 307.42 INSOMNIA, PSYCHOPHYSIOLOGICAL 07/18/2014 ABHILASH MANN APRN 356.9 NEUROPATHY Procedures Code Description [place] [address] TSH 06/27/2013 99872 A1C (IN-HOUSE) 06/27/2013 42514 MICRO ALBUMIN-IN HOUSE 06/27/2013 81411 LIPID PANEL 06/27/2013 87839 CBC 06/27/2013 24201 CMP 06/27/2013 20412 MICROALBUMIN 06/27/2013 6053632 GFR CALC (RESULT ONLY) 06/27/2013 41589 PARING SKIN LESIONS 2-4 (BENIGN) 07/31/2013 87519 CULTURE WOUND (AEROBIC) 11/24/2013 95300 A1C (IN-HOUSE) 11/28/2013 49559 MICRO ALBUMIN-IN HOUSE 01/30/2014 43760 MICROALBUMIN 01/30/2014 04057 A1C (IN-HOUSE) 04/03/2014 Felipe Newberry 07/18/2014 33954 ROUTINE VENIPUNCTURE 08/08/2014 47057 A1C (IN-HOUSE) 08/08/2014 97655 MICRO ALBUMIN-IN HOUSE 08/08/2014 21435 CBC 08/08/2014 6455821 GFR CALC (RESULT ONLY) 08/08/2014 39895 CMP 08/08/2014 05177 LIPID PANEL 08/08/2014 Results There is no data. Encounters ACCT No. Visit Date/Time Discharge Status Pt. Type Provider Facility Loc./Unit Complaint [id number] 10/17/2018 16:40:00 10/17/2018 23:59:59 CLS Outpatient ABHILASH MANN APRN [facility] [id number] 08/08/2014 10:13:00 08/08/2014 23:59:59 CLS Outpatient ABHILASH MANN APRN [id number] 07/18/2014 15:27:00 07/18/2014 23:59:59 CLS Outpatient [id number] 05/01/2014 16:33:00 05/01/2014 23:59:59 CLS Outpatient JOÃO NOEL DO [id number] 04/03/2014 10:05:00 04/03/2014 23:59:59 CLS Outpatient ABHILASH MANN APRN [id number] 01/30/2014 11:31:00 01/30/2014 23:59:59 CLS Outpatient NOEL JOÃO [id number] 11/28/2013 15:45:00 11/28/2013 23:59:59 CLS Outpatient JOÃO NOEL DO [id number] 11/24/2013 12:47:00 11/24/2013 23:59:59 CLS Outpatient LILLIE MARISCAL APRN [id number] 07/31/2013 11:05:00 07/31/2013 23:59:59 CLS Outpatient ABHILASH MANN APRN [id number] 06/27/2013 10:52:00 06/27/2013 23:59:59 CLS Outpatient ABHILASH MANN APRN [id number] 04/15/2012 15:24:00 04/15/2012 23:59:59 CLS Outpatient
--- OUTSIDE RECORDS SUMMARY | 2018-10-27 22:36 | XMS REPORT ---
Author Author ABHILASH MANN Organization [facility] [place] Address [address] [place] [address] Care Team Providers Care Clinical Technician Name Role Phone ABHILASH MANN Unavailable PROBLEMS Type Condition ICD9-CM Code [id number] Code Onset Dates Condition Status SNOMED Code Problem Diabetes E11.9 Active 33453745 ALLERGIES Substance Reaction Event Type Date Status Hydrocodone-acetaminophen 5-325 Mg Tablet Unknown Non Drug Allergy Sep, Active ENCOUNTERS Encounter Location Date Diagnosis [address] [address] Sep, [address] [address] Sep, Atypical mole D22.[address] [address] Dec, Dyspepsia R10.13 and Tinea corporis B35.[address] [address] Dec, Diabetes E11.9 ; Hyperlipidemia, unspecified hyperlipidemia type E78.5 and Ringworm B35.[address] [address] Feb, Diabetes E11.9 and Callus L[address] [address] Feb, Sinusitis J32.9 and Rash R21 [address] [address] Sep, [address] [address] Sep, [facility] [place] [facility] [address] [id number] [place] [address] 14 Jul, 2014 [facility] [place] [facility] [address] [id number] [place] [address] Jul, [facility] [place] [facility] [address] [id number] [place] [address] Apr, [facility] [place] [facility] [address] [id number] [place] [address] Apr, [facility] [place] [facility] [address] [id number] [place] [address] Mar, [facility] [place] [facility] [address] [id number] [place] [address] Mar, [facility] [place] [facility] [address] [id number] [place] [address] Mar, [facility] [place] [facility] [address] [id number] [place] [address] Mar, [facility] [place] [facility] [address] [id number] [place] [address] Feb, [facility] [place] [facility] [address] [id number] [place] [address] Feb, [facility] [place] [facility] [address] [id number] [place] [address] Jan, [facility] [place] [facility] [address] [id number] [place] [address] Jan, [facility] [place] [facility] [address] [id number] [place] [address] Nov, [facility] [place] [facility] [address] [id number] [place] [address] Nov, [facility] [place] [facility] [address] [id number] [place] [address] Nov, [facility] [place] [facility] [address] [id number] [place] [address] Nov, [facility] [place] [facility] [address] [id number] [place] [address] Nov, [facility] [place] [facility] [address] [id number] [place] [address] Nov, [facility] [place] [facility] [address] [id number] [place] [address] Jul, [facility] [place] [facility] [address] [id number] [place] [address] Jul, [facility] [place] [facility] [address] [id number] [place] [address] Jun, [facility] [place] [facility] [address] [id number] [place] [address] Jun, [facility] [place] [facility] [address] [id number] [place] [address] Jun, [facility] [place] [facility] [address] [id number] [place] [address] Jun, [facility] [place] [facility] [address] [id number] [place] [address] Mar, [facility] [place] [facility] [address] [id number] [place] [address] Mar, [facility] [place] [facility] [address] [id number] [place] [address] Jan, [facility] [place] [facility] [address] [id number] [place] [address] Jan, [facility] [place] [facility] [address] [id number] [place] [address] Nov, [facility] [place] [facility] [address] [id number] [place] [address] Oct, [facility] [place] [facility] [address] [id number] [place] [address] August, [facility] [place] [facility] [address] [place] [address] Jul, [facility] [place] [id number] [place] [address] May, [facility] [place] [address] [place] [address] Apr, [facility] [place] [id number] [place] [address] Apr, [facility] [place] [id number] [place] [address] Mar, [facility] [place] [id number] [place] [address] Mar, [facility] [place] [id number] [place] [address] Feb, [facility] [place] [id number] [place] [address] Feb, [facility] [place] [address] [place] [address] Jan, [facility] [place] [id number] [place] [address] Jan, [facility] [place] [address] [place] [address] Jan, IMMUNIZATIONS No Known Immunizations SOCIAL HISTORY Never Assessed REASON FOR VISIT rash on the both sides of his face.The left side is worse and growing. Lots of p ain. PT says it started off like a mole but he was putting cream on it and it h as turned into a rash. He has concerns about it being Cancer-Estuardo PETERSON, PT says he is going through some hard times at home so he has let go of himself and no longer taking any medications. PLAN OF CARE Activity Details Follow Up 4 Weeks Reason:DM VITAL SIGNS Height 65 in 2016-09-28 Weight 194.8 lbs 2016-09-28 Temperature 99.0 degrees Fahrenheit 2016-09-28 Heart Rate 74 bpm 2016-09-28 Respiratory Rate 22 2016-09-28 BMI 32.41 kg/m2 2016-09-28 Blood pressure systolic 132 mmHg 2016-09-28 Blood pressure diastolic 68 mmHg 2016-09-28 MEDICATIONS Medication Instructions Dosage Frequency Start Date End Date Duration Status Triamcinolone Acetonide 0.5 % Externally Twice a day 1 application to affected area 12h 19 Feb, 2015 Active RESULTS No Results PROCEDURES No Known procedures INSTRUCTIONS MEDICATIONS ADMINISTERED No Known Medications MEDICAL (GENERAL) HISTORY Type Description Date Medical History Eye appt 08/29/14 Mild - Mod DM retinopathy marcell Medical History Type 2 diabetes Medical History hypertension Surgical History orthopedic surgery-right knee surgery, done in [place] by Dr. Alcaraz at [address] 03/2010 Surgical History right knee scope by Dr. Rueda 05/2011 Hospitalization History Hospitalization for surgery only
--- OUTSIDE RECORDS SUMMARY | 2018-10-27 22:36 | XMS REPORT ---
Author Author ABHILASH MANN [facility] Address [address] [place] [address] Care Team Providers Care Tray Line Worker Name Role Phone ABHILASH MANN Unavailable PROBLEMS Type Condition ICD9-CM Code [id number] Code Onset Dates Condition Status SNOMED Code Problem Nontraumatic rupture of tendons of biceps (long head) 727.62 Active 27313791 Problem 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 40122414 Problem 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 [id number] Assessment Ringworm B35.9 Dec, Active 16470615 Assessment Hyperlipidemia, unspecified hyperlipidemia type E78.5 Dec, Active 47516008 Assessment Diabetes E11.9 Dec, Active 453678991 Problem Diabetes E11.9 Active 09522053 Problem Lumbago 724.2 Active 957587744 Problem Corns and callosities 700 Active 085982640 Problem Unspecified pruritic disorder 698.9 Active 032405248 Problem Herpes zoster without mention of complication 053.9 Active 068044606 Problem Pain in joint, shoulder region 719.41 Active 385266015 ALLERGIES Substance Reaction Event Type Date Status Hydrocodone-acetaminophen 5-325 Mg Tablet Unknown Non Drug Allergy Dec, Active SOCIAL HISTORY No smoking Hx information available PLAN OF CARE VITAL SIGNS Height 65 in 2015-12-19 Weight 190.0 lbs 2015-12-19 Heart Rate 72 bpm 2015-12-19 Respiratory Rate 18 2015-12-19 BMI 31.61 kg/m2 2015-12-19 Blood pressure systolic 120 mmHg 2015-12-19 Blood pressure diastolic 76 mmHg 2015-12-19 MEDICATIONS Medication Instructions Dosage Frequency Start Date End Date Duration Status Lisinopril 20 mg Orally Once a day 1 tablet 24h Active GlipiZIDE 10 mg 2 tablet in AM and 1 in PM Active Metformin HCl 1000 MG Orally Twice a day 1 tablet with meals 12h Active Aspir-81 81 MG Orally Once a day 1 tablet 24h Active Lotrisone 1-0.05 % Externally 3 times a day 1 application to affected area 8h Dec, Dec, 10 days Active Diflucan 100 MG Orally 1 tablet daily for 9 more days 2 tablets today then Dec, Dec, 10 day(s) Active Simvastatin 40 mg Orally Once a day 1 tablet in the evening 24h Active Triamcinolone Acetonide 0.5 % Externally Twice a day 1 application to affected area 12h Feb, Active RESULTS Name Result Date Reference Range LIPID PANEL 2015-12-19 Cholesterol, Total 199 100-199 Triglycerides 123 0-149 HDL Cholesterol 62 >39 VLDL Cholesterol Orestes 25 5-40 LDL Cholesterol Calc 112 0-99 Comment: CMP 2015-12-19 Glucose, Serum 283 65-99 BUN 16 8-27 Creatinine, Serum 0.72 0.76-1.27 eGFR If NonAfricn Am 101 >59 eGFR If Africn Am 117 >59 BUN/Creatinine Ratio 22 10-22 Sodium, Serum 139 134-144 Potassium, Serum 4.1 3.5-5.2 Chloride, Serum 99 97-108 Carbon Dioxide, Total 24 18-29 Calcium, Serum 9.4 8.6-10.2 Protein, Total, Serum 7.1 6.0-8.5 Albumin, Serum 3.9 3.6-4.8 Globulin, Total 3.2 1.5-4.5 A/G Ratio 1.2 1.1-2.5 Bilirubin, Total 0.4 0.0-1.2 Alkaline Phosphatase, S 110 39-117 AST (SGOT) 11 0-40 ALT (SGPT) 12 0-44 A1C (IN HOUSE) 2015-12-19 A1C IN HOUSE Previous A1c 10.6 Lot [id number] Exp date PROCEDURES Procedure Date Ordered Related Diagnosis Body Site GLYCATED HEMOGLOBIN TEST Dec 19, 2015 LIPID PANEL Dec 19, 2015 Office Visit, Est Pt., Level 3 Dec 19, 2015 COMPREHEN METABOLIC PANEL Dec 19, 2015 VENIPUNCT, ROUTINE* Dec 19, 2015 IMMUNIZATIONS No Known Immunizations
--- OUTSIDE RECORDS SUMMARY | 2018-10-27 22:36 | XMS REPORT ---
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 150466132663604 Assessment Tinea corporis B35.4 Dec, Active 96532173 Assessment Dyspepsia R10.13 Dec, Active 883957567 Problem Diabetes E11.9 Active 64326723 Problem Lumbago 724.2 Active 800818453 Problem Corns and callosities 700 Active 006814344 Problem Unspecified pruritic disorder 698.9 Active 301321784 Problem Herpes zoster without mention of complication 053.9 Active 347218660 Problem Pain in joint, shoulder region 719.41 Active 659397027 ALLERGIES Substance Reaction Event Type Date Status Hydrocodone-acetaminophen 5-325 Mg Tablet Unknown Non Drug Allergy Dec, Active SOCIAL HISTORY No smoking Hx information available PLAN OF CARE VITAL SIGNS Height 65 in 2015-12-26 Weight 187.8 lbs 2015-12-26 Heart Rate 84 bpm 2015-12-26 Respiratory Rate 18 2015-12-26 BMI 31.25 kg/m2 2015-12-26 Blood pressure systolic 120 mmHg 2015-12-26 Blood pressure diastolic 63 mmHg 2015-12-26 MEDICATIONS Medication Instructions Dosage Frequency Start Date End Date Duration Status Lotrisone 1-0.05 % Externally 3 times a day 1 application to affected area 8h Dec, Dec, 10 days Active Zantac 150 MG Orally twice a day 1 12h 08 Dec, 2015 Active Aspir-81 81 MG Orally Once a day 1 tablet 24h Active Metformin HCl 1000 MG Orally Twice a day 1 tablet with meals 12h Active Triamcinolone Acetonide 0.5 % Externally Twice a day 1 application to affected area 12h Feb, Active Diflucan 100 MG Orally 1 tablet daily for 9 more days 2 tablets today then Dec, Dec, 10 day(s) Active Lisinopril 20 mg Orally Once a day 1 tablet 24h Active Lamisil 250 MG Orally Once a day 1 tablet 24h Dec, Dec, 14 days Active GlipiZIDE 10 mg 2 tablet in AM and 1 in PM Active Simvastatin 40 mg Orally Once a day 1 tablet in the evening 24h Active RESULTS No Results PROCEDURES Procedure Date Ordered Related Diagnosis Body Site Office Visit, Est Pt., Level 3 Dec 26, 2015 IMMUNIZATIONS No Known Immunizations
--- OUTSIDE RECORDS SUMMARY | 2018-10-27 22:36 | XMS REPORT ---
Author Author RUSTY DE LA O [facility] [employer] Address Unknown Phone Unavailable Care Team Providers Care B2B Outside Sales Representative Name Role Phone RUSTY DE LA O CP Unavailable Allergies, Adverse Reactions, Alerts Substance Reaction Event Type Hydrocodone-acetaminophen 5-325 Mg Tablet Info Not Available Non Drug Allergy Problems Problem Type Condition Code Onset Dates Condition Status Assessment Rash R21 Active Problem Nontraumatic rupture of tendons of biceps (long head) 727.62 Active Assessment Sinusitis J32.9 Active Problem Herpes zoster without mention of complication 053.9 Active Problem Pain in joint, shoulder region 719.41 Active Problem Lumbago 724.2 Active Problem 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 Problem 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 Problem Corns and callosities 700 Active Problem Unspecified pruritic disorder 698.9 Active Medications Medication Code System Code Instructions Start Date End Date Status Dosage Metformin HCl [facility] [address]-01 1000 MG Orally Twice a day 1 tablet with meals Doxycycline Hyclate [facility] [address]-79 100 MG Orally Twice a day Feb 19, 2015 Feb 26, 2015 1 capsule Aspir-81 [facility] [address]-40 81 MG Orally Once a day 1 tablet Lisinopril [facility] [address]-14 20 MG Orally Once a day 1 tablet Simvastatin [facility] [address]-47 40 MG Orally Once a day 1 tablet in the evening GlipiZIDE [facility] [address]-79 10 MG Orally 2 times a day 1 tablet Procedures Procedure Coding System Code Date Office Visit, Est Pt., Level 3 CPT-4 56142 Feb 19, 2015 Vital Signs Date/Time: Feb 19, 2015 Temperature 97.3 F Weight 198.7 lbs Height 65 in BMI 33.06 Index Blood Pressure Diastolic 78 mmHg Blood Pressure Systolic 140 mmHg Cardiac Monitoring Heart Rate 64 bpm Results No Known Results Summary Purpose eClinicalWorks Submission
--- NOTE | 2018-10-27 22:45 | NUR ---
LANGUAGE LINE UTILIZED FROM 5 TO 2256 FOR TRIAGE AND ASSESSMENT, DR SORENSON IN ROOM WELL.
[2018-10-27] MEDS ORDERED: SULF1TAB35 PO (23:02)
--- NOTE | 2018-10-27 23:03 | ED Integumentary General ---
General Chief Complaint: Bite-Animal/Human/Insect Stated Complaint: INSECT BITE ON THUMB Source: patient Exam Limitations: language barrier (Kenyan as a second appointment. Language line used for Lao interpretation.) History of Present Illness Date Seen by Provider: Oct 27, 2018 Time Seen by Provider: 22:47 Initial Comments Patient presents to the ER by private conveyance with chief complaint that just prior to arrival he was cleaning out his garage and lifted the shelf board up and he did not see what it was about an insect or a mouth's something bit him on his left thumb. He immediately withdrew his thumb and went into the house and cleaned it with alcohol. He says it hurts in his thumb. He has not taken anything for pain but he says he has plenty of Tylenol and ibuprofen at home. He is a diabetic on insulin. He sees Frances Clement at [facility]. No fevers chills nausea vomiting swelling redness or discharge from the thumb. Allergies and Home Medications Allergies Coded Allergies: NKANo Known Allergies (Unverified Allergy, Mild, 01/12/09) Home Medications Acyclovir 200 Mg Cap, 200 MG PO Q4H Prescribed by: COLTON CRUZ on 11/26/131458 Prednisone 20 Mg Tab, 1 TAB PO TID Prescribed by: COLTON CRUZ on 11/26/131458 Silver Sulfadiazine 400 Gm Cr, 0 TOP BID APPLY TO AFFECTED AREA Prescribed by: COLTON CRUZ on 11/26/131458 [Med For Diabetes] , BID, (Reported) Patient Home Medication List Home Medication List Reviewed: Yes Review of Systems Review of Systems Constitutional: No chills, No fever EENTM: No ear pain, No eye pain Respiratory: No cough, No short of breath Cardiovascular: No chest pain, No edema Gastrointestinal: No abdominal pain, No nausea Past Alwbqla-Nvewbn-Pjoymp Hx Patient Social History Alcohol Use: Denies Use Recreational Drug Use: No Smoking Status: Never a Smoker Recent Foreign Travel: No Contact w/Someone Who Travel: No Past Medical History Orthopedic Diabetes, Non-Insulin dep Recent Skin Changes Physical Exam Vital Signs Capillary Refill : General Appearance: WD/WN, no apparent distress HEENT: PERRL/EOMI, pharynx normal Neck: full range of motion, normal inspection Cardiovascular: normal peripheral pulses, regular rate, rhythm Extremities: other (left thumb is moderately tender to palpation distally just proximal to the cuticle.) Neurologic/Psychiatric: alert, normal mood/affect Skin: normal color, warm/dry, other (no swelling, broken skin, evidence of any substantial quite marked. No erythema or other evidence of a stinging or arthropod bite.) Progress/Results/Core Measures Progress Progress Note : Time: 23:00 Progress Note Because he is a diabetic would be reasonable to cover him with some antibiotics against possible arthropod bite/sting or something else. There is no evidence of skin and then broke so even if he was bit by a mammal there would be no concern for rabies. Departure Impression Primary Impression: Insect bites Qualified Codes: S60.362A - Insect bite (nonvenomous) of left thumb, initial encounter; W57.XXXA - Bitten or stung by nonvenomous insect and other nonvenomous arthropods, initial encounter Disposition: HOME, SELF-CARE Condition: Stable Departure-Patient Inst. Decision time for Depature: 23:01 Referrals: [facility] (PCP/Family) Primary Care Physician Patient Instructions: Insect Bites and Stings (DC) Add. Discharge Instructions: Keep the wound clean with regular soap and water. If you experience severe swelling, redness pain and follow-up with your primary care provider for reevaluation. Take the antibiotics 1 tablet twice a day with food. All discharge instructions reviewed with patient and/or family. Voiced understanding. Scripts Sulfamethoxazole/Trimethoprim (Bactrim Ds Tablet) 1 Each Tablet 1 EACH PO BID for 5 Days, #10 TAB 0 Refills Prov: JW SORENSON 10/27/18 JW SORENSON Oct 27, 2018 23:03
--- NOTE | 2018-10-27 23:05 | NUR ---
LANGUAGE LINE USED FOR DISCHARGE INSTRUCTIONS OPPORTUNITY FOR QUESTIONS PROVIDED. PATIENT DENIES QUESTIONS AT THIS TIME.
[2018-10-27 23:10] VITALS: BP 115/67
== END 2018-10-27 23:05 | disposition home or self-care (01) ==
LOC: EDUNIT# 22:28 → ER 22:30
DX: S60.362A Insect bite (nonvenomous) of left thumb, initial encounter (principal); E11.9 Type 2 diabetes mellitus without complications; Z79.4 Long term (current) use of insulin; W57.XXXA Bitten or stung by nonvenomous insect and other nonvenomous arthropods, initial encounter
CPT/HCPCS: 99283

== ENCOUNTER → 2018-11-21 | Outpatient (CLI) | payer OTHER ==
[~2018-11-21] MED LIST changes: +SULF1TAB35 PO
== END | disposition home or self-care (01) ==
LOC: PREOP 10:02
PROVIDERS: ATTEND Surgery
DX: Z01.818 Encounter for other preprocedural examination (principal)

== ENCOUNTER 2018-11-22 10:04 | Day surgery (SDC) | payer OTHER ==
[~2018-11-22] VITALS: Ht 165.1 cm; Wt 83.9 kg
[2018-11-22] MEDS ORDERED: LACTATED RINGERS 1,000 ML IV ONE (10:08)
[2018-11-22] MEDS ORDERED: LACTATED RINGERS 1,000 ML IV STA (10:12)
[2018-11-22 10:39] VITALS: BP 142/76
[2018-11-22] MEDS ORDERED: MIDAZOLAM 2 MG/2 ML (VERSED) VIAL ONE (10:42)
[2018-11-22] MEDS ORDERED: proPOfol 200 MG/20 ML (DIPRIVAN) VIAL IV ONE (10:42)
--- NOTE | 2018-11-22 10:53 | Progress Note-Pre Operative ---
Pre-Operative Progress Note H&P Reviewed The H&P was reviewed, patient examined and no changes noted. Date Seen by Provider: Nov 22, 2018 Time Seen by Provider: 10:52 Date H&P Reviewed: Nov 22, 2018 Time H&P Reviewed: 10:53 Pre-Operative Diagnosis: mass rlq BIANCA CAUSEY DO Nov 22, 2018 10:53
[2018-11-22 11:40] VITALS: BP 107/57
--- NOTE | 2018-11-22 11:41 | Progress Note-Post Operative ---
Post-Operative Progess Note Surgeon (s)/Computer Lab Assistant (s) Surgeon BIANCA CAUSEY DO Computer Lab Assistant: n/a Pre-Operative Diagnosis mass rlq Post-Operative Diagnosis rectal polyp Procedure & Operative Findings Date of Procedure 11/22/18 Procedure Performed/Findings colonoscopy with hot biopsy polypectomy rectum Anesthesia Type per procurement manager Estimated Blood Loss Estimated blood loss (mL): None Specimens/Packing Specimens Removed rectal polyp BIANCA CAUSEY DO Nov 22, 2018 11:41
[2018-11-22 11:45] VITALS: BP 107/58
--- NOTE | 2018-11-22 11:47 | Discharge Inst-Simple/Standard ---
Discharge Inst-Standard Patient Instructions/Follow Up Plan of Care/Instructions/FU: 2 weeks Nile Activity as Tolerated: Yes Discharge Diet: Regular Diet BIANCA CAUSEY DO Nov 22, 2018 11:47
[2018-11-22 12:15] VITALS: BP 120/68
[2018-11-22 12:35] VITALS: BP 120/68
--- NOTE | 2018-11-22 12:37 | Anesthesia-General Post-Op ---
MAC Patient Condition Mental Status/LOC: Same as Preop Cardiovascular: Satisfactory Nausea/Vomiting: Absent Respiratory: Satisfactory Pain: Controlled Complications: Absent Post Op Complications Complications None Follow Up Care/Instructions Patient Instructions None needed. Anesthesiology Discharge Order Discharge Order Patient was seen after the procedure and he was doing well, no complaints, stable vital signs, no apparent adverse anesthesia problems. KANDICE BRICENO DO Nov 22, 2018 12:37
--- NOTE | 2018-11-22 20:02 | OPERATIVE REPORT ---
DATE OF SERVICE: 11/22/2018 PREOPERATIVE DIAGNOSIS: Right colon mass. POSTOPERATIVE DIAGNOSIS: Rectal polyp. PROCEDURE: Colonoscopy with hot biopsy polypectomy of the rectum. SURGEON: Bianca Dowd DO ANESTHESIA: Per HELPER DRIVER. ESTIMATED BLOOD LOSS: None. COMPLICATIONS: None. INDICATIONS: The patient is a 63-year-old male with a CT scan finding of questionable ascending colon, circumferential thickening, concerning for possible neoplasm. He was discussed risks and benefits of procedure and wished to proceed with procedure. Consent was signed in the chart. DESCRIPTION OF PROCEDURE: The patient was taken to the endoscopy suite, placed in left lateral recumbent position. Timeout was performed. Digital rectal exam was performed. There were no palpable polyps, masses or ulcerations. Scope was inserted in the rectum, advanced all the way to cecum with minimal difficulty. The ileum was intubated noting no other pathology. Scope was withdrawn demonstrating the appendiceal orifice. Prep was adequate with irrigation and suction. Scope was then slowly retracted back. There were no polyps, mass or ulceration of the cecum, ascending, transverse and descending and sigmoid colon. Once in the rectum, small polyp was present, which hot biopsy polypectomy was performed. Scope was then retroflexed noting no other pathology. Scope was returned to its normal position, slowly withdrawn until completely removed. The patient tolerated procedure well without any complications, taken to recovery room in stable condition. RECOMMENDATIONS: The patient will need repeat colonoscopy in 3 to 5 years. If any issues before that, would recommend repeat at that time. The patient will follow up in the office in 2 weeks. If any issues before that, will be seen at that time. Job ID: [id number] DocumentID: [id number] Dictated Date: 11/22/2018 11:46:11 Medical Staff Services Coordinator Date: 11/22/2018 20:01:45 Dictated By: BIANCA DOWD DO
== END 2018-11-22 12:35 | disposition home or self-care (01) ==
LOC: ENDO 10:04
PROVIDERS: ATTEND Surgery
DX: D12.8 Benign neoplasm of rectum (principal); Z86.73 Personal history of transient ischemic attack (TIA), and cerebral infarction without residual deficits; I10 Essential (primary) hypertension; E11.9 Type 2 diabetes mellitus without complications; Z79.84 Long term (current) use of oral hypoglycemic drugs

== ENCOUNTER 2019-01-22 07:53 | Emergency (ER) | payer OTHER ==
[~2019-01-22] VITALS: Ht 175 cm; Wt 90.0 kg
[2019-01-22] MEDS ORDERED: NS IV 1000 ML 1,000 ML IV SCH (08:19)
[2019-01-22 08:30] LABS: BASOPHILS # (AUTO) 0.1 10^3/uL (0.0-0.1); BASOPHILS % (AUTO) 2 % (0-10); EOSINOPHILS # (AUTO) 0.1 10^3/uL (0.0-0.3); EOSINOPHILS % (AUTO) 2 % (0-10); HEMATOCRIT 39 % (40-54); HEMOGLOBIN 13.5 G/DL (13.3-17.7); LYMPHOCYTES # (AUTO) 1.1 X 10^3 (1.0-4.0); LYMPHOCYTES % (AUTO) 21 % (12-44); MEAN CORPUSCULAR HEMOGLOBIN 30 PG (25-34); MEAN CORPUSCULAR HGB CONC 34 G/DL (32-36); MEAN CORPUSCULAR VOLUME 88 FL (80-99); MEAN PLATELET VOLUME 10.7 FL (7.4-10.4); MONOCYTES # (AUTO) 0.6 X 10^3 (0.0-1.0); MONOCYTES % (AUTO) 10 % (0-12); NEUTROPHILS # (AUTO) 3.5 X 10^3 (1.8-7.8); NEUTROPHILS % (AUTO) 65 % (42-75); PLATELET COUNT 197 10^3/uL (130-400); RED CELL DISTRIBUTION WIDTH 12.8 % (10.0-14.5); WHITE BLOOD COUNT 5.3 10^3/uL (4.3-11.0)
[2019-01-22] MEDS ORDERED: KETOROLAC 30 MG/ML VIAL IVP ONE (08:30)
--- NOTE | 2019-01-22 08:31 | ED Abdominal Pain ---
General Chief Complaint: Abdominal/GI Problems Stated Complaint: ABD PAIN Nursing Triage Note: AMBULATED TO ROOM 5. LANGUAGE LINE USED. PT STATES HE HAS BEEN HAVING RIGHT SIDED CHEST PAIN THAT RADIATES TO RIGHT FOOT FOR X3 MONTHS. HAS BEEN TO AND HAD BLOOD WORK AND XRAYS DONE. Sepsis Screen: No Definite Risk Source of Information: Patient Exam Limitations: Language Barrier (language line used) History of Present Illness Date Seen by Provider: Jan 22, 2019 Time Seen by Provider: 07:50 Initial Comments Patient presents to ER with with chief complaint of 3 months of right-sided abdominal pain radiating down his right hip and leg all the way down to the ankle. He has paresthesias numbness tingling pins and needles in the right lower leg. No history of back pain or back surgeries. He's been to [facility] and had x-rays of the chest, belly and blood work. He was put on some kind of a pain medicine but he does not know the name of it is and he ran out and says it does not help anyways. He says all of his workup so far has been normal. He has diabetes on pills. No history of abdominal surgeries or trauma. No history of kidney stones dysuria urinary incontinence hesitancy saddle anesthesia falls. Says he is constantly in motion to keep out of pain. After reviewing the CT scan from October showing some thickening ascending colon patient does admit to going to Dr. Lee for colonoscopy at which time he took some polyps out noticed some diverticula and also a mass. The plan was to do something about the mass but the patient and said they have not received any communication from primary care or surgery office. They saw Dr. Lee on December 25 and at that time he was going to coordinate with primary care and get back to them but they have not heard anything. Allergies and Home Medications Allergies Coded Allergies: NKANo Known Allergies (Unverified Allergy, Mild, 01/12/09) Patient Home Medication List Home Medication List Reviewed: Yes Review of Systems Review of Systems Constitutional: No chills, No fever, No malaise EENTM: No Blurred Vision, No Double Vision Respiratory: Denies Cough, Denies Shortness of Air Cardiovascular: Denies Chest Pain, Denies Edema Gastrointestinal: See HPI, Abdominal Pain; Denies Constipated; Diarrhea; Denies Nausea, Denies Poor Fluid Intake, Denies Vomiting Genitourinary: Denies Burning, Denies Discharge Musculoskeletal: No back pain, No joint pain Past Qejwvzu-Hypaej-Ozcxkt Hx Patient Social History Alcohol Use: Past History Recreational Drug Use: No Smoking Status: Never a Smoker 2nd Hand Smoke Exposure: No Recent Foreign Travel: No Contact w/Someone Who Travel: No Recent Infectious Disease Expo: No Recent Hopitalizations: No Seasonal Allergies Seasonal Allergies: No Past Medical History Surgeries: No Orthopedic Respiratory: No Cardiac: No Neurological: No Genitourinary: No Gastrointestinal: No Musculoskeletal: No Endocrine: Yes Diabetes, Non-Insulin dep HEENT: No Cancer: No Psychosocial: No Integumentary: No Recent Skin Changes Blood Disorders: No Physical Exam Vital Signs Vital Signs - First Documented 01/22/19 07:55 Temp 35.7 Pulse 75 Resp 16 B/P (MAP) 165/88 (113) Pulse Ox 96 O2 Delivery Room Air Capillary Refill : Less Than 3 Seconds Height/Weight/BMI Height: 5'5.00" Weight: 185lbs. 0.0oz. [id number]; 29.00 BMI Method:Stated General Appearance: WD/WN, mild distress HEENT: PERRL/EOMI, pharynx normal Neck: non-tender, full range of motion Respiratory: lungs clear, normal breath sounds, no respiratory distress, no accessory muscle use Cardiovascular: normal peripheral pulses, regular rate, rhythm Peripheral Pulses: 2+ Radial Pulses (R), 2+ Radial Pulses (L) Gastrointestinal: normal bowel sounds, soft, tenderness (mild right upper quadrant and right lower quadrant tenderness to palpation. No rebound tenderness over McBurney's point. Negative for Sears sign. No mesenteric or psoas sign.) Back: normal inspection, no vertebral tenderness, muscle spasm, other (right, lumbar, paravertebral tenderness re-creating sciatic symptoms) Neurologic/Psychiatric: alert, normal mood/affect, oriented x 3 Skin: normal color, warm/dry Progress/Results/Core Measures Results/Orders Lab Results Laboratory Tests Test 01/22/19 08:02 01/22/19 09:55 Range/Units White Blood Count 5.3 4.3-11.0 10^3/uL Red Blood Count 4.49 4.35-5.85 10^6/uL Hemoglobin 13.5 13.3-17.7 G/DL Hematocrit 39 L 40-54 % Mean Corpuscular Volume 88 80-99 FL Mean Corpuscular Hemoglobin 30 25-34 PG Mean Corpuscular Hemoglobin Concent 34 32-36 G/DL Red Cell Distribution Width 12.8 10.0-14.5 % Platelet Count 197 130-400 10^3/uL Mean Platelet Volume 10.7 H 7.4-10.4 FL Neutrophils (%) (Auto) 65 42-75 % Lymphocytes (%) (Auto) 21 12-44 % Monocytes (%) (Auto) 10 0-12 % Eosinophils (%) (Auto) 2 0-10 % Basophils (%) (Auto) 2 0-10 % Neutrophils # (Auto) 3.5 1.8-7.8 X 10^3 Lymphocytes # (Auto) 1.1 1.0-4.0 X 10^3 Monocytes # (Auto) 0.6 0.0-1.0 X 10^3 Eosinophils # (Auto) 0.1 0.0-0.3 10^3/uL Basophils # (Auto) 0.1 0.0-0.1 10^3/uL Sodium Level 138 135-145 MMOL/L Potassium Level 4.2 3.6-5.0 MMOL/L Chloride Level 104 98-107 MMOL/L Carbon Dioxide Level 22 21-32 MMOL/L Anion Gap 12 5-14 MMOL/L Blood Urea Nitrogen 17 7-18 MG/DL Creatinine 0.79 0.60-1.30 MG/DL Estimat Glomerular Filtration Rate > 60 BUN/Creatinine Ratio 22 Glucose Level 213 H 70-105 MG/DL Calcium Level 9.2 8.5-10.1 MG/DL Corrected Calcium 9.3 8.5-10.1 MG/DL Total Bilirubin 0.6 0.1-1.0 MG/DL Aspartate Amino Transf (AST/SGOT) 14 5-34 U/L Alanine Aminotransferase (ALT/SGPT) 19 0-55 U/L Alkaline Phosphatase 76 40-136 U/L C-Reactive Protein High Sensitivity 0.06 0.00-0.50 MG/DL Total Protein 7.2 6.4-8.2 GM/DL Albumin 3.9 3.2-4.5 GM/DL Lipase 114 H 8-78 U/L Urine Color YELLOW Urine Clarity CLEAR Urine pH 7 5-9 Urine Specific Otis 1.010 L 1.016-1.022 Urine Protein 1+ H NEGATIVE Urine Glucose (UA) 3+ H NEGATIVE Urine Ketones NEGATIVE NEGATIVE Urine Nitrite NEGATIVE NEGATIVE Urine Bilirubin NEGATIVE NEGATIVE Urine Urobilinogen NORMAL NORMAL MG/DL Urine Leukocyte Esterase NEGATIVE NEGATIVE Urine RBC (Auto) NEGATIVE NEGATIVE Urine RBC NONE /HPF Urine WBC NONE /HPF Urine Squamous Epithelial Cells RARE /HPF Urine Crystals NONE /LPF Urine Bacteria TRACE /HPF Urine Casts NONE /LPF Urine Mucus NEGATIVE /LPF Urine Culture Indicated NO My Orders Orders - JW SORENSON Ed Iv/Invasive Line Start (01/22/19 08:19) Ns Iv 1000 Ml (Sodium Chloride 0.9%) (01/22/19 08:19) Ct Abdomen/Pelvis W (01/22/19 08:19) Cbc With Automated Diff (01/22/19 08:19) Comprehensive Metabolic Panel (01/22/19 08:19) Hs C Reactive Protein (01/22/19 08:19) Ua Culture If Indicated (01/22/19 08:19) Lipase (01/22/19 08:19) Ketorolac Injection (Toradol Injection) (01/22/19 08:30) Iohexol Injection (Omnipaque 350 Mg/Ml 1 (01/22/19 09:00) Received Contrast (Hold Metformin- Contr (01/22/19 09:00) Ns (Ivpb) (Sodium Chloride 0.9% Ivpb Bag (01/22/19 09:00) Medications Given in ED Current Medications Medications Dose Ordered Sig/Daiana Route Start Time Stop Time Status Last Admin Dose Admin Iohexol 100 ml ONCE ONCE IV 01/22/19 09:00 01/22/19 09:20 DC 01/22/19 09:34 100 ML Ketorolac Tromethamine 30 mg ONCE ONCE IVP 01/22/19 08:30 01/22/19 08:31 DC 01/22/19 08:29 30 MG Sodium Chloride 100 ml ONCE ONCE IV 01/22/19 09:00 01/22/19 09:20 DC 01/22/19 09:34 100 ML Vital Signs/I&O 01/22/19 07:55 Temp 35.7 Pulse 75 Resp 16 B/P (MAP) 165/88 (113) Pulse Ox 96 O2 Delivery Room Air Blood Pressure Mean: 113 Progress Progress Note : Time: 10:23 Progress Note No definite connection between his lumbago and his right-sided abdominal pain. In October he had a CT showing some ascending colon thickening concerning for neoplasm. Bowel obstruction is in the differential however repeat imaging today is unremarkable. His pain is controlled with the fentanyl. Plan to put him out on some hydrocodone with follow-up with general surgery to perform colonoscopy. We will hold off on a steroid injections until he has his workup of his bowel. Lipase is mildly elevated however CT imaging is unremarkable and there is no d ilatation of the ductal system. No elevated bilirubin. Outpatient management with an ultrasound of the right upper quadrant may be beneficial. Diagnostic Imaging Diagonstic Imaging: CT (with IV contrast) Plain Films/CT/US/NM/MRI: abdomen, pelvis Comments NAME: CRUZ [facility] REC#: [id number] PT STATUS: REG ER : 1955 PHYSICIAN: JW SORENSON MD ADMIT DATE: 01/22/19/ER Draft Date of Exam:01/22/19 CT ABDOMEN/PELVIS W PROCEDURE: CT abdomen and pelvis with contrast. TECHNIQUE: Multiple contiguous axial images were obtained through the abdomen and pelvis after administration of intravenous contrast. Auto Exposure Controls were utilized during the CT exam to meet ALARA standards for radiation dose reduction. INDICATION: Elevated lipase, right-sided pain. The study compared 10/24/2018. Previous circumferential thickening and irregularity of the proximal ascending colon is no longer identified. The appendix is present and normal. There are no urinary tract calculi. The patient's pancreas appeared homogenous in density and enhancement. No acute fluid collection or pseudocyst. No peripancreatic edema. Liver, spleen, adrenals, gallbladder, bile ducts unremarkable. No bowel, biliary or urinary tract obstruction. There is no ascites, abscess, hematoma or fluid collection. No aneurysm, adenopathy, mass. No focal inflammatory process. IMPRESSION: Resolution of previous colonic thickening. No identifiable mass, obstruction, perforation, inflammatory process or acute findings. In particular, no acute hepatobiliary or pancreatic abnormality evident. Dictated on workstation # [id number] Dict: 01/22/19 0955 Trans: 01/22/19 1012 SAKINA [id number] Interpreted by: ALYSON GRIFFIN Electronically signed by: Reviewed: Reviewed by Me Departure Impression Primary Impression: Abdominal pain Qualified Codes: R10.31 - Right lower quadrant pain Additional Impression: Lumbago with sciatica, right side Qualified Codes: M54.41 - Lumbago with sciatica, right side Disposition: 01 HOME, SELF-CARE Condition: Stable Departure-Patient Inst. Decision time for Depature: 10:44 Referrals: [facility] [place] (PCP/Family) Primary Care Physician ELIZABETH LEE DO Patient Instructions: Sciatica Exercises, Low Back Pain (DC) Add. Discharge Instructions: Start taking naproxen 1 tablet twice a day for the next 2 weeks to help with your back pain. If you're still having pain you can use Tylenol 650 mg every 8 hours. You may also use a back brace, topical creams such as Aspercreme, icy hot as well as heating pads. For breakthrough pain you can use the hydrocodone one tablet every 6 hours as needed. It will cause constipation so MiraLAX or Dulcolax can be helpful. Wednesday, tomorrow 01/23/[address] Lee's office as well as your primary care office to establish some follow-up appointments. All discharge instructions reviewed with patient and/or family. Voiced understanding. Scripts Hydrocodone Bit/Acetaminophen (Hydrocodone/Acetaminophen 5/325mg Tablet) 1 Tab Tab 1 EACH PO Q4-6HR PRN for PAIN-MODERATE MDD 10 for 3 Days, #15 TAB 0 Refills Prov: JW SORENSON 01/22/19 Naproxen (Naprosyn) 500 Mg Tablet 500 MG PO BID, #30 TAB 0 Refills Prov: JW SORENSON 01/22/19 Work/School Note: Work Release Form Date Seen in the Emergency Department: Jan 22, 2019 Return to Work: Jan 25, 2019 Restrictions: Need Release from Doctor Other Restrictions Listed Below: Do not lift, push, pin puller 20 pounds until 02/01/19. Copy Copies To 1: JOÃO NOEL DO; ELIZABETH LEE DO JW SORENSON Jan 22, 2019 08:31
[2019-01-22 08:47] LABS: ALANINE AMINOTRANSFERASE 19 U/L (0-55); ALBUMIN 3.9 GM/DL (3.2-4.5); ALKALINE PHOSPHATASE 76 U/L (40-136); BILIRUBIN,TOTAL 0.6 MG/DL (0.1-1.0); BUN/CREATININE RATIO 22; CALCIUM 9.2 MG/DL (8.5-10.1); CARBON DIOXIDE 22 MMOL/L (21-32); CHLORIDE 104 MMOL/L (98-107); CREATININE SERUM 0.79 MG/DL (0.60-1.30); GFR ESTIMATED > 60; GLUCOSE 213 MG/DL (70-105); LIPASE 114 U/L (8-78); POTASSIUM 4.2 MMOL/L (3.6-5.0); SODIUM 138 MMOL/L (135-145); TOTAL PROTEIN 7.2 GM/DL (6.4-8.2)
[2019-01-22] MEDS ORDERED: NS 100 ML (IVPB) BAG IV ONE (09:00)
[2019-01-22] MEDS ORDERED: IOHEXOL 350 MG/ML 100 ML (OMNIPAQUE 350) VIAL IV ONE (09:00)
[2019-01-22] MEDS ORDERED: HOLD METFORMIN - RECEIVED CONTRAST 20 ML VIAL IV SCH (09:00)
[2019-01-22 10:00] LABS: BILIRUBIN,URINE NEGATIVE (NEGATIVE); CLARITY,URINE CLEAR; COLOR,URINE YELLOW; GLUCOSE, URINE (UA) 3+ (NEGATIVE); KETONES,URINE NEGATIVE (NEGATIVE); LEUKOCYTE ESTERASE ,URINE NEGATIVE (NEGATIVE); NITRITE,URINE NEGATIVE (NEGATIVE); PH,URINE 7 (5-9); PROTEIN,URINE 1+ (NEGATIVE); UROBILINOGEN,URINE NORMAL (NORMAL)
[2019-01-22 10:07] LABS: BACTERIA,URINE TRACE /HPF; SQUAMOUS EPITHELIAL CELL,UR RARE /HPF
--- NOTE | 2019-01-22 10:13 | Diagnostic Imaging Report ---
PROCEDURE: CT abdomen and pelvis with contrast. TECHNIQUE: Multiple contiguous axial images were obtained through the abdomen and pelvis after administration of intravenous contrast. Auto Exposure Controls were utilized during the CT exam to meet ALARA standards for radiation dose reduction. INDICATION: Elevated lipase, right-sided pain. The study compared 10/24/2018. Previous circumferential thickening and irregularity of the proximal ascending colon is no longer identified. The appendix is present and normal. There are no urinary tract calculi. The patient's pancreas appeared homogenous in density and enhancement. No acute fluid collection or pseudocyst. No peripancreatic edema. Liver, spleen, adrenals, gallbladder, bile ducts unremarkable. No bowel, biliary or urinary tract obstruction. There is no ascites, abscess, hematoma or fluid collection. No aneurysm, adenopathy, mass. No focal inflammatory process. IMPRESSION: Resolution of previous colonic thickening. No identifiable mass, obstruction, perforation, inflammatory process or acute findings. In particular, no acute hepatobiliary or pancreatic abnormality evident. Dictated by: Dictated on workstation # [id number]
[2019-01-22] MEDS ORDERED: NAPR-1071 PO (10:48)
[2019-01-22] MEDS ORDERED: ACHD5005 PO (10:48)
[2019-01-22] MEDS ORDERED: HYDROcodone/APAP 5 MG/325 MG (LORTAB) TAB PO ONE (11:00)
[2019-01-22 11:19] VITALS: BP 161/89
== END 2019-01-22 11:19 | disposition home or self-care (01) ==
LOC: EDUNIT# 07:53 → ER 07:54
DX: R10.31 Right lower quadrant pain (principal); R10.11 Right upper quadrant pain; M54.41 Lumbago with sciatica, right side; E11.9 Type 2 diabetes mellitus without complications
CPT/HCPCS: 36415; 74177; 80053; 81000; 83690; 85025; 86141

== ENCOUNTER → 2019-02-02 | Outpatient (CLI) | payer OTHER ==
[~2019-02-02] MED LIST changes: +ACHD5005 PO; +NAPR-1071 PO
--- NOTE | 2019-02-02 09:22 | Diagnostic Imaging Report ---
PROCEDURE: US Gallbladder. TECHNIQUE: Multiple real-time grayscale images were obtained over the right upper quadrant in various projections. INDICATION: Right upper quadrant pain Liver parenchyma is homogeneous with normal echotexture. Gallbladder is clear with no stones or wall thickening. The common duct is nondilated. Right kidney is normal. Pancreas is obscured by bowel gas. There is no ascites. IMPRESSION: Negative gallbladder sonogram Dictated by: Dictated on workstation # [id number]
== END ==
LOC: RAD 08:24
PROVIDERS: ATTEND Surgery
DX: R10.11 Right upper quadrant pain (principal)
CPT/HCPCS: 76705

== ENCOUNTER → 2019-02-08 | Outpatient (CLI) | payer OTHER ==
--- NOTE | 2019-02-08 12:24 | Diagnostic Imaging Report ---
PROCEDURE: MRI lumbar spine. TECHNIQUE: Multiplanar, multisequence MRI of the lumbar spine was performed without contrast. INDICATION: Low back pain. No prior studies are available for comparison. Curvature of the lumbar spine is normal. Minimal anterolisthesis of L4 on L5 is noted. Vertebral body heights are maintained. No acute compression fracture or geographic marrow lesion is seen. There is mild generalized disc desiccation but disc spaces are well-maintained. The conus is unremarkable at the L1 level. T12-L1: Central canal is widely patent. Neural foramina appear patent. L1-L2: There is some ligamentous thickening. Central canal is patent. Neural foramina appear patent. L2-L3: There is ligamentous thickening and facet changes as well as broad-based disc/osteophyte complex. Moderate narrowing of the central canal is noted. There is also significant narrowing bilateral lateral recesses and moderate bilateral neural foraminal stenosis. L3-L4: Ligament thickening and facet changes with broad-based disc/osteophyte complex is noted. There is significant central canal stenosis as well as significant bilateral lateral recess stenosis. Significant bilateral neural foraminal stenosis is identified. L4-L5: Hypertrophic facet changes and ligamentous thickening with broad-based disc/osteophyte complex results in significant central canal stenosis as well as severe bilateral lateral recess stenosis. There is also severe bilateral neural foraminal stenosis. L5-S1: Hypertrophic facet changes are noted with broad-based disc/osteophyte complex. Central canal is patent but there is significant bilateral lateral recess and bilateral neural foraminal stenosis. The paraspinous tissues are unremarkable. IMPRESSION: Multilevel lumbar spondylosis with multilevel central canal, lateral recess and neural foraminal stenosis described level by level above. No acute compression fracture is detected. Dictated by: Dictated on workstation # [id number]
== END ==
LOC: RAD 09:32
PROVIDERS: ATTEND Nurse Practitioner Community Health
DX: M48.07 Spinal stenosis, lumbosacral region (principal); M51.16 Intervertebral disc disorders with radiculopathy, lumbar region; M47.27 Other spondylosis with radiculopathy, lumbosacral region
CPT/HCPCS: 72148

== ENCOUNTER → 2019-02-20 | Outpatient (CLI) | payer OTHER ==
[~2019-02-20] MED LIST changes: +CATHETER FLUSH 10 ML SYR IV PRN
--- NOTE | 2019-02-20 16:30 | Diagnostic Imaging Report ---
INDICATION: Abdominal pain. TECHNIQUE: Acquisitions were acquired over the abdomen after the administration of 4.95 mCi of technetium 99m Choletec. After 60 minutes, the patient consumed one can of Ensure and an ejection fraction was obtained. FINDINGS: There is homogeneous uptake of isotope throughout the liver. There is significant accumulation within the gallbladder by 30 minutes. There is free flow of activity in the small bowel. The ejection fraction was calculated to be 32.6%. IMPRESSION: No evidence of cystic duct obstruction; however, there is a lower limits of normal ejection fraction of 32.6%. Dictated by: Dictated on workstation # [id number]
== END ==
LOC: CARD 12:55
PROVIDERS: ATTEND Surgery
DX: R10.11 Right upper quadrant pain (principal)
CPT/HCPCS: 78227

== ENCOUNTER 2019-07-24 15:10 | Outpatient (RCR) | payer BC ==
[~2019-07-24 15:10] MED LIST changes: -CATHETER FLUSH 10 ML SYR IV PRN; +DOCU-143 PO; +GABA-486 PO; +GLIP10TA13 PO; +LISI-552 PO; +METF-399 PO; +NAPR500T8 PO
== END 2019-09-27 | disposition home or self-care (01) ==
PROVIDERS: ATTEND Nurse Practitioner Community Health
DX: M54.16 Radiculopathy, lumbar region (principal)

== ENCOUNTER 2020-03-12 11:16 | Outpatient (RCR) | payer BC | END 2020-03-14 | disposition home or self-care (01) | PROVIDERS: ATTEND Nurse Practitioner Community Health | DX: G57.91 Unspecified mononeuropathy of right lower limb (principal) ==

== ENCOUNTER 2020-05-08 13:41 | Emergency (ER) | payer BC ==
[~2020-05-08] VITALS: Ht 167.4 cm; Wt 185.0 kg
--- NOTE | 2020-05-08 14:07 | ED General ---
General Chief Complaint: Glucose Problems Stated Complaint: KETONES Nursing Triage Note: patient sent from walking with 3+ketones in urine. patient non-taiwanese speaking. patient went to clinic for severe headache, buring senesation with urine x3 days, yesterday noticed "spotting" red underware, incontance states unable to hod in urine. increse thurst, diaphretic. Nursing Sepsis Screen: No Definite Risk Source of Information: Patient Exam Limitations: Language Barrier History of Present Illness Date Seen by Provider: May 08, 2020 Time Seen by Provider: 14:00 Initial Comments This is a 65 yo Armenian speaking male who was referred to ED for further evaluation from [facility] walk in clinic. He was seen for hematuria and dysuria, but was noted to have 3+ ketones in urine. He reports increased pain and blood with urination, and states this has been occurring for several days. He denies GARRIDO, dizziness, cough, shortness of breath, nausea, vomiting, diarrhea, or abdominal pain. 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 Allergies and Home Medications Allergies Coded Allergies: NKANo Known Allergies (Unverified Allergy, Mild, 01/12/09) Home Medications Ciprofloxacin HCl 500 Mg Tablet, 500 MG PO BID Prescribed by: LATESHA ROCHA on 05/08/20 1739 Docusate Sodium 100 Mg Capsule, 100 MG PO DAILY Prescribed by: BIANCA CAUSEY on 03/02/19 1427 Gabapentin 100 Mg Capsule, 100 MG PO TID, (Reported) Hydrocodone Bit/Acetaminophen 1 Tab Tab, 1-2 TAB PO Q6H PRN for PAIN-MODERATE Prescribed by: BIANCA CAUSEY on 03/02/19 1427 Lisinopril 20 Mg Tablet, 20 MG PO DAILY, (Reported) Patient Home Medication List Home Medication List Reviewed: Yes Review of Systems Review of Systems Constitutional: no symptoms reported EENTM: no symptoms reported Respiratory: no symptoms reported Cardiovascular: no symptoms reported Gastrointestinal: no symptoms reported Genitourinary: see HPI Musculoskeletal: no symptoms reported Skin: no symptoms reported Psychiatric/Neurological: No Symptoms Reported Hematologic/Lymphatic: No Symptoms Reported Immunological/Allergic: no symptoms reported Past Jbsjkim-Qjcveq-Tcagsi Hx Patient Social History Alcohol Use: Denies Use Smoking Status: Never a Smoker 2nd Hand Smoke Exposure: No Recent Infectious Disease Expo: No Recent Hopitalizations: No Immunizations Up To Date Date of Influenza Vaccine: Jan 17, 2019 Seasonal Allergies Seasonal Allergies: No Past Medical History Surgeries: Yes (RIGHT KNEE X2; LEFT SHOULDER X1) Orthopedic Respiratory: No Cardiac: No Neurological: No Genitourinary: No Gastrointestinal: No Musculoskeletal: No Endocrine: Yes Diabetes, Non-Insulin dep HEENT: No Cancer: No Psychosocial: No Integumentary: No Recent Skin Changes Blood Disorders: No Physical Exam Vital Signs Vital Signs - First Documented 05/08/20 13:46 Temp 35.8 Pulse 77 Resp 20 B/P (MAP) 138/72 (94) Pulse Ox 97 O2 Delivery Room Air Capillary Refill : Greater Than 3 Seconds Height, Weight, BMI Height: 5'5.00" Weight: 185lbs. 0.0oz. 83.857619mb; 66.00 BMI Method:Stated General Appearance: No Apparent Distress, WD/WN Eyes: Bilateral Eye Normal Inspection, Bilateral Eye PERRL, Bilateral Eye EOMI HEENT: PERRL/EOMI, TMs Normal, Normal ENT Inspection Neck: Full Range of Motion, Normal Inspection Respiratory: Chest Non Tender, Lungs Clear, Normal Breath Sounds Cardiovascular: Regular Rate, Rhythm, No Edema, Normal Peripheral Pulses Gastrointestinal: Normal Bowel Sounds, Non Tender, Soft Genital/Rectal: Normal Genital Exam Extremity: Normal Capillary Refill, Normal Range of Motion Neurologic/Psychiatric: Alert, Oriented x3, No Motor/Sensory Deficits, Normal Mood/Affect Skin: Normal Color, Warm/Dry Progress/Results/Core Measures Suspected Sepsis Recent Fever Within 48 Hours: No Infection Criteria Present: None New/Unexplained Altered Menta: No Sepsis Screen: No Definite Risk SIRS Temperature: Pulse: 77 Respiratory Rate: 20 Laboratory Tests 05/08/20 14:10: White Blood Count 16.4H Blood Pressure 138 /72 Mean: 94 Laboratory Tests 05/08/20 14:10: Creatinine 0.95, Platelet Count 151, Total Bilirubin 1.4H Results/Orders Lab Results Laboratory Tests Test 05/08/20 14:10 05/08/20 14:20 05/08/20 16:50 Range/Units White Blood Count 16.4 H 4.3-11.0 10^3/uL Red Blood Count 4.64 4.30-5.52 10^6/uL Hemoglobin 13.8 13.3-17.7 g/dL Hematocrit 42 40-54 % Mean Corpuscular Volume 90 80-99 fL Mean Corpuscular Hemoglobin 30 25-34 pg Mean Corpuscular Hemoglobin Concent 33 32-36 g/dL Red Cell Distribution Width 12.8 10.0-14.5 % Platelet Count 151 130-400 10^3/uL Mean Platelet Volume 11.7 9.0-12.2 fL Immature Granulocyte % (Auto) 1 % Neutrophils (%) (Auto) 87 H 42-75 % Lymphocytes (%) (Auto) 5 L 12-44 % Monocytes (%) (Auto) 8 0-12 % Eosinophils (%) (Auto) 0 0-10 % Basophils (%) (Auto) 0 0-10 % Neutrophils # (Auto) 14.2 H 1.8-7.8 10^3/uL Lymphocytes # (Auto) 0.8 L 1.0-4.0 10^3/uL Monocytes # (Auto) 1.2 H 0.0-1.0 10^3/uL Eosinophils # (Auto) 0.0 0.0-0.3 10^3/uL Basophils # (Auto) 0.1 0.0-0.1 10^3/uL Immature Granulocyte # (Auto) 0.1 0.0-0.1 10^3/uL Neutrophils % (Manual) 73 % Lymphocytes % (Manual) 9 % Monocytes % (Manual) 7 % Band Neutrophils 11 % Blood Morphology Comment NORMAL Sodium Level 134 L 135-145 MMOL/L Potassium Level 4.1 3.6-5.0 MMOL/L Chloride Level 100 98-107 MMOL/L Carbon Dioxide Level 18 L 21-32 MMOL/L Anion Gap 16 H 5-14 MMOL/L Blood Urea Nitrogen 16 7-18 MG/DL Creatinine 0.95 0.60-1.30 MG/DL Estimat Glomerular Filtration Rate > 60 BUN/Creatinine Ratio 17 Glucose Level 320 H 70-105 MG/DL Calcium Level 9.0 8.5-10.1 MG/DL Corrected Calcium 9.2 8.5-10.1 MG/DL Total Bilirubin 1.4 H 0.1-1.0 MG/DL Aspartate Amino Transf (AST/SGOT) 18 5-34 U/L Alanine Aminotransferase (ALT/SGPT) 25 0-55 U/L Alkaline Phosphatase 108 40-136 U/L Total Protein 7.5 6.4-8.2 GM/DL Albumin 3.7 3.2-4.5 GM/DL Beta-Hydroxybutyrate (Chem panel) 4.35 H 0.00-0.27 MMOL/L Procalcitonin 0.71 H <0.10 NG/ML Coronavirus 2019 (JOSE) Negative Negative Urine Color YELLOW Urine Clarity CLEAR Urine pH 5.5 5-9 Urine Specific [place] 1.020 1.016-1.022 Urine Protein NEGATIVE NEGATIVE Urine Glucose (UA) 3+ H NEGATIVE Urine Ketones 3+ H NEGATIVE Urine Nitrite NEGATIVE NEGATIVE Urine Bilirubin 1+ H NEGATIVE Urine Urobilinogen 0.2 < = 1.0 MG/DL Urine Leukocyte Esterase NEGATIVE NEGATIVE Urine RBC (Auto) NEGATIVE NEGATIVE Urine RBC 2-5 H /HPF Urine WBC 5-10 H /HPF Urine Squamous Epithelial Cells 0-2 /HPF Urine Crystals NONE /LPF Urine Bacteria FEW H /HPF Urine Casts NONE /LPF Urine Mucus NEGATIVE /LPF Urine Culture Indicated YES Blood Gas Puncture Site RR Blood Gas Patient Temperature 37.3 Arterial Blood pH 7.35 L 7.37-7.43 Arterial Blood Partial Pressure CO2 32 L 35-45 MMHG Arterial Blood Partial Pressure O2 105 H 79-93 MMHG Arterial Blood HCO3 17 *L 23-27 MMOL/L Arterial Blood Total CO2 18.2 L 21.0-31.0 MMOL/L Arterial Blood Oxygen Saturation 98 94-100 % Arterial Blood Base Excess -7.3 L -2.5-2.5 MMOL/L Vladimir Test YES-POS Blood Gas Ventilator Setting NO Blood Gas Inspired Oxygen RA Micro Results Microbiology 05/08/20 Urine Culture - Preliminary, Resulted Escherichia coli My Orders Orders - LATESHA ROCHA APRN Cbc With Automated Diff (05/08/20 14:04) Comprehensive Metabolic Panel (05/08/20 14:04) Beta Hydroxybutyrate (05/08/20 14:04) Urinalysis (05/08/20 14:04) Covid 19 Inhouse Test (05/08/20 14:07) Manual Differential (05/08/20 14:10) Urine Culture (05/08/20 14:20) Ct Abdomen/Pelvis W Wo (05/08/20 15:14) Iohexol Injection (Omnipaque 350 Mg/Ml 1 (05/08/20 15:30) Received Contrast (Hold Metformin- Contr (05/08/20 15:30) Ns (Ivpb) (Sodium Chloride 0.9% Ivpb Bag (05/08/20 15:30) Procalcitonin (Pct) (05/08/20 16:30) Ns Iv 1000 Ml (Sodium Chloride 0.9%) (05/08/20 16:45) Arterial Blood Gas (05/08/20 16:37) Ciprofloxacin Tablet (Cipro Tablet) (05/08/20 17:30) Medications Given in ED Vital Signs/I&O Capillary Refill : Greater Than 3 Seconds Blood Pressure Mean: 94 Progress Note : Progress Note Pt examined upon arrival and in no acute distress. Labs, UA, and CT abd/pelvis with and without contrast to assess for renal calculi. CT abd/pelvis shows NAD. Labs reviewed. Noted to UTI, elevated WBC-16.4, Hgb- 13.8, stable. ABG shows a slight AG metabolic acidosis that is appropriately compensated. He was given a liter of NS and first dose of antibiotics prior to discharge. Strongly reinforced taking antidiabetic medications, reducing carbs/sugars in diet in order to control BG. Recommended calling his PCP for close follow up. Discussed return to ER if symptoms worsen or if he has any new or concerning symptoms. Reviewed discharge POC and he is agreeable with plan. Diagnostic Imaging Diagonstic Imaging: CT Plain Films/CT/US/NM/MRI: abdomen Comments NAME: CRUZ BYRD [facility] REC#: [id number] PT STATUS: REG ER : 1955 PHYSICIAN: LATESHA ROCHA APRN ADMIT DATE: 05/08/20/ER Signed Date of Exam:05/08/20 CT ABDOMEN/PELVIS W WO PROCEDURE: CT abdomen and pelvis with and without contrast. TECHNIQUE: Precontrast acquisitions were acquired through the abdomen and pelvis. Multiple contiguous axial images were obtained through the abdomen and pelvis after the administration of intravenous contrast. Auto Exposure Controls were utilized during the CT exam to meet ALARA standards for radiation dose reduction. INDICATION: Right lower quadrant pain with hematuria. COMPARISON: Abdominal pelvic CT 01/22/2019. FINDINGS: There is no hydroureteronephrosis. There are no radiopaque urinary tract calculi. The appendix is visualized directed medially off the cecum. No appendicitis. There is a mildly elevated colonic fecal load but no focal impaction or renetta bowel obstruction. The small bowel is nondilated. No perienteric or pericolonic edema. There is fatty infiltration of the liver, mild and chronic. No bile duct dilatation postcholecystectomy. The adrenals and pancreas are negative. Tiny cyst off the upper pole of the left kidney, benign. No suspicious renal lesion. The aorta is nonaneurysmal and is patent. The urinary bladder is unremarkable. The bony structures and the lung bases are nonacute. IMPRESSION: Normal appendix. Unobstructed nonacute urinary tracts. No inflammatory process or acute abnormality is identified. Dictated by: Dictated on workstation # [id number] Dict: 05/08/20 1623 Trans: 05/08/20 1647 PJ [id number] Interpreted by: ALYSON GRIFFIN Electronically signed by: ALYSON GRIFFIN 05/08/20 1647 Departure Impression Primary Impression: Hyperglycemia Disposition: 01 HOME, SELF-CARE Condition: Stable/Unchanged Departure-Patient Inst. Decision time for Depature: 17:39 Referrals: ABHILASH MANN (PCP) Primary Care Physician [facility] (Family) Primary Care Physician Patient Instructions: Urinary Tract Infection, Adult (DC), Hyperglycemia, Adult Add. Discharge Instructions: Plan: 1. Discharge home. Drink plenty of fluids. 2. Take antibiotics as directed and complete full course. 3. Follow up with your primary care provider if your symptoms persist. 4. Return for any new or concerning symptoms. All discharge instructions reviewed with patient and/or family. Voiced understanding. Scripts Ciprofloxacin HCl (Ciprofloxacin HCl) 500 Mg Tablet 500 MG PO BID for 7 Days, #14 TAB 0 Refills Prov: LATESHA ROCHA [employer] 05/08/20 LATESHA ROCHA [employer] May 08, 2020 14:07
[2020-05-08 14:28] LABS: BASOPHILS # (AUTO) 0.1 10^3/uL (0.0-0.1); BASOPHILS % (AUTO) 0 % (0-10); EOSINOPHILS % (AUTO) 0 % (0-10); HEMATOCRIT 42 % (40-54); HEMOGLOBIN 13.8 g/dL (13.3-17.7); LYMPHOCYTES # (AUTO) 0.8 10^3/uL (1.0-4.0); LYMPHOCYTES % (AUTO) 5 % (12-44); MEAN CORPUSCULAR HEMOGLOBIN 30 pg (25-34); MEAN CORPUSCULAR HGB CONC 33 g/dL (32-36); MEAN CORPUSCULAR VOLUME 90 fL (80-99); MEAN PLATELET VOLUME 11.7 fL (9.0-12.2); MONOCYTES # (AUTO) 1.2 10^3/uL (0.0-1.0); MONOCYTES % (AUTO) 8 % (0-12); NEUTROPHILS # (AUTO) 14.2 10^3/uL (1.8-7.8); NEUTROPHILS % (AUTO) 87 % (42-75); PLATELET COUNT 151 10^3/uL (130-400); WHITE BLOOD COUNT 16.4 10^3/uL (4.3-11.0)
[2020-05-08 14:29] LABS: BILIRUBIN,URINE 1+ (NEGATIVE); CLARITY,URINE CLEAR; COLOR,URINE YELLOW; GLUCOSE, URINE (UA) 3+ (NEGATIVE); KETONES,URINE 3+ (NEGATIVE); LEUKOCYTE ESTERASE ,URINE NEGATIVE (NEGATIVE); NITRITE,URINE NEGATIVE (NEGATIVE); PH,URINE 5.5 (5-9); PROTEIN,URINE NEGATIVE (NEGATIVE)
[2020-05-08 14:41] LABS: BAND NEUTROPHILS 11 %; LYMPHOCYTES % (MANUAL) 9 %; MONOCYTES % (MANUAL) 7 %; NEUTROPHILS % (MANUAL) 73 %; RBC MORPH NORMAL
[2020-05-08 14:43] LABS: BACTERIA,URINE FEW /HPF; SQUAMOUS EPITHELIAL CELL,UR 0-2 /HPF
[2020-05-08 14:46] LABS: ALANINE AMINOTRANSFERASE 25 U/L (0-55); ALBUMIN 3.7 GM/DL (3.2-4.5); ALKALINE PHOSPHATASE 108 U/L (40-136); BILIRUBIN,TOTAL 1.4 MG/DL (0.1-1.0); BUN/CREATININE RATIO 17; CARBON DIOXIDE 18 MMOL/L (21-32); CHLORIDE 100 MMOL/L (98-107); CREATININE SERUM 0.95 MG/DL (0.60-1.30); GFR ESTIMATED > 60; GLUCOSE 320 MG/DL (70-105); POTASSIUM 4.1 MMOL/L (3.6-5.0); SODIUM 134 MMOL/L (135-145); TOTAL PROTEIN 7.5 GM/DL (6.4-8.2)
[2020-05-08] MEDS ORDERED: IOHEXOL 350 MG/ML 100 ML (OMNIPAQUE 350) VIAL IV ONE (15:30)
[2020-05-08] MEDS ORDERED: NS 100 ML (IVPB) BAG IV ONE (15:30)
[2020-05-08] MEDS ORDERED: HOLD METFORMIN - RECEIVED CONTRAST 20 ML VIAL IV SCH (15:30)
--- NOTE | 2020-05-08 16:31 | Diagnostic Imaging Report ---
PROCEDURE: CT abdomen and pelvis with and without contrast. TECHNIQUE: Precontrast acquisitions were acquired through the abdomen and pelvis. Multiple contiguous axial images were obtained through the abdomen and pelvis after the administration of intravenous contrast. Auto Exposure Controls were utilized during the CT exam to meet ALARA standards for radiation dose reduction. INDICATION: Right lower quadrant pain with hematuria. COMPARISON: Abdominal pelvic CT 01/22/2019. FINDINGS: There is no hydroureteronephrosis. There are no radiopaque urinary tract calculi. The appendix is visualized directed medially off the cecum. No appendicitis. There is a mildly elevated colonic fecal load but no focal impaction or renetta bowel obstruction. The small bowel is nondilated. No perienteric or pericolonic edema. There is fatty infiltration of the liver, mild and chronic. No bile duct dilatation postcholecystectomy. The adrenals and pancreas are negative. Tiny cyst off the upper pole of the left kidney, benign. No suspicious renal lesion. The aorta is nonaneurysmal and is patent. The urinary bladder is unremarkable. The bony structures and the lung bases are nonacute. IMPRESSION: Normal appendix. Unobstructed nonacute urinary tracts. No inflammatory process or acute abnormality is identified. Dictated by: Dictated on workstation # [id number]
[2020-05-08] MEDS ORDERED: NS IV 1000 ML 1,000 ML IV ONE (16:45)
[2020-05-08 17:03] LABS: ABG BASE EXCESS -7.3 MMOL/L (-2.5-2.5); ABG PCO2 32 MMHG (35-45); ABG PH 7.35 (7.37-7.43); ABG PO2 105 MMHG (79-93); ABG TCO2 18.2 MMOL/L (21.0-31.0)
[2020-05-08 17:04] LABS: ABG OXYGEN SATURATION 98 % (94-100); ALLENS TEST YES-POS; INSPIRED O2 RA; PATIENT TEMP 37.3; VENTILATOR NO
[2020-05-08] MEDS ORDERED: CIPROFLOXACIN 500 MG (CIPRO) TABLET PO ONE (17:30)
[2020-05-08] MEDS ORDERED: CIPR500T4 PO (17:39)
[2020-05-08 18:00] VITALS: BP 138/72
== END 2020-05-08 18:00 | disposition home or self-care (01) ==
LOC: EDUNIT# 13:41 → ER 13:42
DX: R73.9 Hyperglycemia, unspecified (principal); Z20.822 Contact with and (suspected) exposure to COVID-19
CPT/HCPCS: 74178; 80053; 81000; 82010; 82805; 84145; 85007; 85027; 87077; 87088; 99285; U0002; 36415; 87635

== ENCOUNTER 2020-06-13 10:31 | Outpatient (RCR) | payer BC ==
[~2020-06-13 10:31] MED LIST changes: +CIPR500T5 PO; -LISI-552 PO; +LISI20TA26 PO
== END 2020-06-16 | disposition home or self-care (01) ==
PROVIDERS: ATTEND Nurse Practitioner Community Health
DX: G57.91 Unspecified mononeuropathy of right lower limb (principal); M54.5 Low back pain

== ENCOUNTER 2020-08-15 10:10 | Outpatient (RCR) | payer BC | END 2020-08-15 10:58 | disposition home or self-care (01) | PROVIDERS: ATTEND Nurse Practitioner Community Health | DX: G57.93 Unspecified mononeuropathy of bilateral lower limbs (principal); M54.5 Low back pain ==

== ENCOUNTER → 2020-10-17 | Outpatient (CLI) | payer BC ==
[~2020-10-17] MED LIST changes: +CATHETER FLUSH 10 ML SYR IV PRN; +HOLD METFORMIN - RECEIVED CONTRAST 20 ML VIAL IV SCH; +IOHEXOL 350 MG/ML 100 ML (OMNIPAQUE 350) VIAL IV ONE
[2020-10-17 07:33] LABS: ALANINE AMINOTRANSFERASE 20 U/L (0-55); ALBUMIN 3.8 GM/DL (3.2-4.5); ALKALINE PHOSPHATASE 63 U/L (40-136); BILIRUBIN,TOTAL 0.6 MG/DL (0.1-1.0); BUN/CREATININE RATIO 16; CALCIUM 9.4 MG/DL (8.5-10.1); CARBON DIOXIDE 25 MMOL/L (21-32); CHLORIDE 108 MMOL/L (98-107); CREATININE SERUM 0.74 MG/DL (0.60-1.30); GFR ESTIMATED > 60; GLUCOSE 95 MG/DL (70-105); POTASSIUM 4.1 MMOL/L (3.6-5.0); SODIUM 142 MMOL/L (135-145); TOTAL PROTEIN 7.5 GM/DL (6.4-8.2)
--- NOTE | 2020-10-17 10:53 | Diagnostic Imaging Report ---
PROCEDURE: CT abdomen and pelvis with and without contrast. TECHNIQUE: Precontrast acquisitions were acquired through the abdomen and pelvis. Multiple contiguous axial images were obtained through the abdomen and pelvis after the administration of intravenous contrast. Auto Exposure Controls were utilized during the CT exam to meet ALARA standards for radiation dose reduction. INDICATION: Recurrent urinary tract infections. COMPARISON: Correlation is made with prior CT from 05/08/2020. FINDINGS: Lung bases are clear. No discrete liver mass is identified. The gallbladder is surgically absent. There is no biliary ductal dilatation. Pancreas and spleen are unremarkable. No adrenal mass is detected. Kidneys are grossly unremarkable apart from tiny nonobstructing calculus in the lower pole of the right kidney. There are also small cortical low-attenuation lesions in the left kidney, too small to characterize but most likely cysts. There is no hydronephrosis. No ureteral calculi are seen. Aorta is nonaneurysmal. Small and large bowel loops are normal in caliber without obstruction. There is moderate stool in the colon. There does appear to be a right seminal vesicle cyst of approximately 19 mm in size. Prostate contains multiple calcifications. Delayed images demonstrate contrast throughout the renal collecting systems and ureters as well as the bladder. No mass lesion is detected. Postop changes in the lower lumbar spine are noted. IMPRESSION: 1. Tiny nonobstructing right renal calculus. 2. Moderate stool in the colon, suggestive of constipation. 3. Renal cysts. 4. Seminal vesicle cyst. 5. No definite urinary tract obstruction or noncalcified mass is detected. Dictated by: Dictated on workstation # [id number]
== END ==
LOC: RAD 08:15
PROVIDERS: ATTEND Pediatrics
DX: N39.0 Urinary tract infection, site not specified (principal)
CPT/HCPCS: 36415; 74178; 80053